=== PATIENT | male | born 1960 | race Caucasian/White ===

== ENCOUNTER 2017-07-05 23:46 | Inpatient (IN) | payer MEDICARE, OTHER ==
[2017-07-06] MEDS: ONDANSETRON 4 MG INJ IV ×2 (03:19→11:46)
[2017-07-06] MEDS: HYDROmorphONE 0.5 MG/0.5 ML SYG IV ×5 (03:19→22:05)
[2017-07-06 03:29] LABS: ADD MAN DIFF? NO
[2017-07-06 03:31] LABS: BASOPHIL # 0.1 10^3/ul (0.0-0.1); BASOPHILS % 0.5 % (0.0-2.0); EOSINOPHILS # 0.3 10^3/ul (0.0-0.5); EOSINOPHILS % 1.7 % (0.0-7.0); HEMATOCRIT 48.2 % (42.0-52.0); HEMOGLOBIN 15.7 g/dl (14.0-18.0); LYMPHOCYTES # 2.4 10^3/ul (0.8-2.9); LYMPHOCYTES % 15.2 % (15.0-51.0); MEAN CORPUSCULAR HGB CONC 32.6 g/dl (32.0-37.0); MEAN CORPUSCULAR VOLUME 85.9 fl (82.0-101.0); MEAN PLATELET VOLUME 10.7 fl (7.4-10.4); MONOCYTES % 6.1 % (0.0-11.0); NEUTROPHIL # 12.1 10^3/ul (1.6-7.5); NEUTROPHILS % 75.6 % (39.0-77.0); PLATELET COUNT 232 10^3/UL (140-415); RED BLOOD COUNT 5.61 10^6/ul (4.70-6.10); RED CELL DISTRIBUTION WIDTH 14.7 % (11.5-14.5)
[2017-07-06 03:54] LABS: ALANINE AMINOTRANSFERASE 33 IU/L (13-69); ALBUMIN 4.7 g/dl (3.3-4.9); ALBUMIN/GLOBULIN RATIO 1.09; ALKALINE PHOSPHATASE 134 IU/L (42-121); ANION GAP 27 (8-16); ASPARTATE AMINO TRANSFERASE 23 IU/L (15-46); BILIRUBIN,INDIRECT 0.4 mg/dl (0-1.1); BILIRUBIN,TOTAL 0.4 mg/dl (0.2-1.3); BLOOD UREA NITROGEN 45 mg/dl (7-20); CALCIUM 9.2 mg/dl (8.4-10.2); CARBON DIOXIDE 15 mmol/L (21-31); CHLORIDE 105 mmol/L (97-110); CREATININE 4.25 mg/dl (0.61-1.24); GLUCOSE 176 mg/dl (70-220); POTASSIUM 4.2 mmol/L (3.5-5.1); SODIUM 143 mmol/L (135-144)
[2017-07-06 04:04] LABS: B-TYPE NATRIURETIC PEPTIDE 2210 PG/ML (0-125); TROPONIN-I 0.025 ng/ml (0.00-0.12)
[2017-07-06] MEDS: LINAGLIPTIN 5 MG TABLET PO (09:00)
[2017-07-06] MEDS ORDERED: NACL 0.9% 3 ML SYG IV (09:00)
[2017-07-06] MEDS ORDERED: RANITIDINE 150 MG TAB PO (09:00)
[2017-07-06] MEDS ORDERED: ACETAMINOPHEN 325 MG TAB PO (09:00)
[2017-07-06] MEDS ORDERED: NITROGLYCERIN (SL) 0.4 MG TAB SL (09:00)
[2017-07-06] MEDS ORDERED: GLUCAGON 1 MG INJ IM (10:00)
[2017-07-06] MEDS ORDERED: GLUCOSE GEL 15 GRAM TUBE BUCCAL (10:00)
[2017-07-06] MEDS ORDERED: DEXTROSE 50% 50 ML SYRINGE IV ×2 (10:00)
[2017-07-06] MEDS ORDERED: GLUCOSE GEL 15 GRAM TUBE PO ×2 (10:00)
[2017-07-06 10:22] LABS: CREATINE KINASE 98 IU/L (23-200)
[2017-07-06 10:24] LABS: MAGNESIUM 1.9 mg/dl (1.7-2.5)
[2017-07-06 10:31] LABS: CK INDEX 4.8; TROPONIN-I 0.018 ng/ml (0.00-0.12)
[2017-07-06 10:33] LABS: CK-MB 4.73 ng/ml (0.0-2.4)
[2017-07-06] MEDS: GABAPENTIN 100 MG CAP PO ×3 (11:03→21:16)
[2017-07-06] MEDS: ASPIRIN 81 MG TAB PO (11:03)
[2017-07-06] MEDS: METOPROLOL 25 MG TAB PO ×2 (11:04→21:16)
[2017-07-06] MEDS: ATORVASTATIN 80 MG TAB PO (11:05)
[2017-07-06] MEDS: ASPIRIN (EC) 81 MG TAB PO (11:05)
[2017-07-06] MEDS: ISOSORBIDE DINITRATE 20 MG TAB PO ×3 (11:05→21:15)
[2017-07-06] MEDS: SOD CHLORIDE 0.45% 1,000 ML IV (11:15)
[2017-07-06] MEDS: HYDROCODONE/APAP (5/325) TAB PO (11:19)
[2017-07-06] MEDS: INSULIN ASPART [NOVOLOG] 3 ML PEN SC ×3 (13:45→21:14)
[2017-07-06] MEDS: CALCIUM CARBONATE 500 MG CHEW TAB PO (15:13)
[2017-07-06 17:06] LABS: CREATINE KINASE 85 IU/L (23-200)
[2017-07-06 17:21] LABS: CK-MB 4.23 ng/ml (0.0-2.4); TROPONIN-I < 0.012 ng/ml (0.00-0.12)
[2017-07-06] MEDS: ZOLPIDEM 5 MG TAB PO (22:04)
[2017-07-06] MEDS: INSULIN GLARGINE [LANtus] 3 ML PEN SC (22:16)
[2017-07-07] MEDS: SOD CHLORIDE 0.45% 1,000 ML IV ×2 (00:59→12:36)
[2017-07-07] MEDS: ACCU-CHEK XX (02:00)
[2017-07-07] MEDS: HYDROmorphONE 0.5 MG/0.5 ML SYG IV ×6 (02:07→23:03)
[2017-07-07] MEDS: PANTOPRAZOLE (EC) 40 MG TAB PO (06:10)
[2017-07-07 06:50] LABS: ADD MAN DIFF? NO
[2017-07-07 06:54] LABS: BASOPHIL # 0.1 10^3/ul (0.0-0.1); BASOPHILS % 0.4 % (0.0-2.0); EOSINOPHILS # 0.2 10^3/ul (0.0-0.5); EOSINOPHILS % 1.6 % (0.0-7.0); HEMATOCRIT 41.2 % (42.0-52.0); HEMOGLOBIN 13.3 g/dl (14.0-18.0); LYMPHOCYTES # 1.4 10^3/ul (0.8-2.9); LYMPHOCYTES % 9.9 % (15.0-51.0); MEAN CORPUSCULAR HEMOGLOBIN 27.9 pg (29.0-33.0); MEAN CORPUSCULAR HGB CONC 32.3 g/dl (32.0-37.0); MEAN CORPUSCULAR VOLUME 86.4 fl (82.0-101.0); MEAN PLATELET VOLUME 10.6 fl (7.4-10.4); MONOCYTE # 0.8 10^3/ul (0.3-0.9); MONOCYTES % 5.4 % (0.0-11.0); NEUTROPHIL # 11.6 10^3/ul (1.6-7.5); NEUTROPHILS % 82.1 % (39.0-77.0); PLATELET COUNT 193 10^3/UL (140-415); RED BLOOD COUNT 4.77 10^6/ul (4.70-6.10); RED CELL DISTRIBUTION WIDTH 14.4 % (11.5-14.5)
[2017-07-07 06:54] LABS: WHITE BLOOD COUNT 14.1 10^3/ul (4.8-10.8)
[2017-07-07 07:21] LABS: CHOLESTEROL 87 mg/dl (100-200)
[2017-07-07 07:21] LABS: CHOL/HDL RATIO 2.9 RATIO; HDL CHOLESTEROL 30 mg/dl (28-71); LDL CHOLESTEROL,CALCULATED 25 mg/dl; TRIGLYCERIDES 158 mg/dl (0-149)
[2017-07-07 07:29] LABS: ALANINE AMINOTRANSFERASE 25 IU/L (13-69); ALBUMIN 3.8 g/dl (3.3-4.9); ALBUMIN/GLOBULIN RATIO 1.11; ALKALINE PHOSPHATASE 105 IU/L (42-121); ANION GAP 21 (8-16); ASPARTATE AMINO TRANSFERASE 17 IU/L (15-46); BILIRUBIN,INDIRECT 0.2 mg/dl (0-1.1); BILIRUBIN,TOTAL 0.2 mg/dl (0.2-1.3); BLOOD UREA NITROGEN 52 mg/dl (7-20); CALCIUM 8.3 mg/dl (8.4-10.2); CARBON DIOXIDE 20 mmol/L (21-31); CHLORIDE 100 mmol/L (97-110); CREATININE 3.97 mg/dl (0.61-1.24); GLUCOSE 252 mg/dl (70-220); PHOSPHORUS 5.2 mg/dl (2.5-4.9); POTASSIUM 4.5 mmol/L (3.5-5.1); SODIUM 136 mmol/L (135-144); TOTAL PROTEIN 7.2 g/dl (6.1-8.1)
[2017-07-07] MEDS: GABAPENTIN 100 MG CAP PO ×3 (08:19→21:25)
[2017-07-07] MEDS: ATORVASTATIN 80 MG TAB PO (08:19)
[2017-07-07] MEDS: INSULIN ASPART [NOVOLOG] 3 ML PEN SC ×4 (08:19→21:24)
[2017-07-07] MEDS: ASPIRIN (EC) 81 MG TAB PO (08:20)
[2017-07-07] MEDS: LINAGLIPTIN 5 MG TABLET PO (08:20)
[2017-07-07] MEDS: ISOSORBIDE DINITRATE 20 MG TAB PO ×3 (08:21→21:27)
[2017-07-07] MEDS: METOPROLOL 25 MG TAB PO ×2 (08:24→21:26)
[2017-07-07] MEDS: ASPIRIN 81 MG TAB PO (09:00)
[2017-07-07] MEDS: INSULIN GLARGINE [LANtus] 3 ML PEN SC (21:25)
[2017-07-07] MEDS: APIXABAN 5 MG TABLET PO (21:27)
[2017-07-08] MEDS: ACCU-CHEK XX (02:00)
[2017-07-08] MEDS: HYDROmorphONE 0.5 MG/0.5 ML SYG IV ×5 (03:08→20:34)
[2017-07-08] MEDS: PANTOPRAZOLE (EC) 40 MG TAB PO (05:52)
[2017-07-08] MEDS: INSULIN ASPART [NOVOLOG] 3 ML PEN SC ×4 (08:00→20:44)
[2017-07-08] MEDS: APIXABAN 5 MG TABLET PO ×2 (08:49→20:35)
[2017-07-08] MEDS: ASPIRIN (EC) 81 MG TAB PO (08:49)
[2017-07-08] MEDS: ATORVASTATIN 80 MG TAB PO (08:49)
[2017-07-08] MEDS: LINAGLIPTIN 5 MG TABLET PO (08:50)
[2017-07-08] MEDS: ISOSORBIDE DINITRATE 20 MG TAB PO ×3 (08:50→20:47)
[2017-07-08] MEDS: GABAPENTIN 100 MG CAP PO ×3 (08:50→20:46)
[2017-07-08] MEDS: METOPROLOL 25 MG TAB PO (08:51)
[2017-07-08 09:25] LABS: ADD MAN DIFF? NO
[2017-07-08 09:27] LABS: WHITE BLOOD COUNT 12.1 10^3/ul (4.8-10.8)
[2017-07-08 09:27] LABS: BASOPHILS % 0.3 % (0.0-2.0); EOSINOPHILS # 0.2 10^3/ul (0.0-0.5); EOSINOPHILS % 1.3 % (0.0-7.0); HEMATOCRIT 40.7 % (42.0-52.0); HEMOGLOBIN 13.2 g/dl (14.0-18.0); LYMPHOCYTES # 1.7 10^3/ul (0.8-2.9); LYMPHOCYTES % 13.9 % (15.0-51.0); MEAN CORPUSCULAR HEMOGLOBIN 28.2 pg (29.0-33.0); MEAN CORPUSCULAR HGB CONC 32.4 g/dl (32.0-37.0); MONOCYTE # 0.8 10^3/ul (0.3-0.9); MONOCYTES % 6.2 % (0.0-11.0); NEUTROPHIL # 9.4 10^3/ul (1.6-7.5); NEUTROPHILS % 77.5 % (39.0-77.0); PLATELET COUNT 177 10^3/UL (140-415); RED BLOOD COUNT 4.68 10^6/ul (4.70-6.10); RED CELL DISTRIBUTION WIDTH 14.5 % (11.5-14.5)
[2017-07-08 09:48] LABS: ALANINE AMINOTRANSFERASE 31 IU/L (13-69); ALBUMIN 3.4 g/dl (3.3-4.9); ALBUMIN/GLOBULIN RATIO 1.09; ALKALINE PHOSPHATASE 101 IU/L (42-121); ANION GAP 16 (8-16); ASPARTATE AMINO TRANSFERASE 17 IU/L (15-46); BLOOD UREA NITROGEN 52 mg/dl (7-20); CALCIUM 8.1 mg/dl (8.4-10.2); CARBON DIOXIDE 23 mmol/L (21-31); CHLORIDE 103 mmol/L (97-110); CREATININE 3.98 mg/dl (0.61-1.24); GLUCOSE 145 mg/dl (70-220); POTASSIUM 4.2 mmol/L (3.5-5.1); SODIUM 138 mmol/L (135-144); TOTAL PROTEIN 6.5 g/dl (6.1-8.1)
[2017-07-08] MEDS: METOPROLOL 50 MG TAB PO (20:46)
[2017-07-08] MEDS: INSULIN GLARGINE [LANtus] 3 ML PEN SC (20:50)
[2017-07-08 22:48] LABS: PTH CALCIUM 8.6 mg/dL (8.6-10.3)
[2017-07-09] MEDS: HYDROmorphONE 0.5 MG/0.5 ML SYG IV ×5 (00:36→20:40)
[2017-07-09] MEDS: ACCU-CHEK XX (02:00)
[2017-07-09 06:11] LABS: ADD MAN DIFF? NO
[2017-07-09 06:15] LABS: WHITE BLOOD COUNT 11.7 10^3/ul (4.8-10.8)
[2017-07-09 06:15] LABS: BASOPHILS % 0.3 % (0.0-2.0); EOSINOPHILS # 0.3 10^3/ul (0.0-0.5); EOSINOPHILS % 2.3 % (0.0-7.0); HEMATOCRIT 40.2 % (42.0-52.0); HEMOGLOBIN 13.1 g/dl (14.0-18.0); LYMPHOCYTES # 1.6 10^3/ul (0.8-2.9); LYMPHOCYTES % 13.5 % (15.0-51.0); MEAN CORPUSCULAR HEMOGLOBIN 28.5 pg (29.0-33.0); MEAN CORPUSCULAR HGB CONC 32.6 g/dl (32.0-37.0); MEAN CORPUSCULAR VOLUME 87.6 fl (82.0-101.0); MEAN PLATELET VOLUME 10.6 fl (7.4-10.4); MONOCYTE # 0.9 10^3/ul (0.3-0.9); MONOCYTES % 7.3 % (0.0-11.0); NEUTROPHIL # 8.9 10^3/ul (1.6-7.5); NEUTROPHILS % 75.9 % (39.0-77.0); PLATELET COUNT 186 10^3/UL (140-415); RED BLOOD COUNT 4.59 10^6/ul (4.70-6.10); RED CELL DISTRIBUTION WIDTH 14.5 % (11.5-14.5)
[2017-07-09 06:28] LABS: ALANINE AMINOTRANSFERASE 31 IU/L (13-69); ALBUMIN 3.6 g/dl (3.3-4.9); ALBUMIN/GLOBULIN RATIO 1.05; ALKALINE PHOSPHATASE 104 IU/L (42-121); ANION GAP 18 (8-16); ASPARTATE AMINO TRANSFERASE 20 IU/L (15-46); BILIRUBIN,INDIRECT 0.1 mg/dl (0-1.1); BILIRUBIN,TOTAL 0.1 mg/dl (0.2-1.3); BLOOD UREA NITROGEN 51 mg/dl (7-20); CALCIUM 8.1 mg/dl (8.4-10.2); CARBON DIOXIDE 24 mmol/L (21-31); CHLORIDE 106 mmol/L (97-110); CREATININE 4.09 mg/dl (0.61-1.24); GLUCOSE 162 mg/dl (70-220); POTASSIUM 4.5 mmol/L (3.5-5.1); SODIUM 143 mmol/L (135-144)
[2017-07-09] MEDS: PANTOPRAZOLE (EC) 40 MG TAB PO (06:48)
[2017-07-09] MEDS: GABAPENTIN 100 MG CAP PO ×3 (08:33→20:52)
[2017-07-09] MEDS: ATORVASTATIN 80 MG TAB PO (08:34)
[2017-07-09] MEDS: METOPROLOL 50 MG TAB PO ×2 (08:34→20:54)
[2017-07-09] MEDS: ISOSORBIDE DINITRATE 20 MG TAB PO ×3 (08:35→20:53)
[2017-07-09] MEDS: APIXABAN 5 MG TABLET PO ×2 (08:35→20:52)
[2017-07-09] MEDS: HYDROCODONE/APAP (5/325) TAB PO (08:35)
[2017-07-09] MEDS: ASPIRIN (EC) 81 MG TAB PO (08:36)
[2017-07-09] MEDS: LINAGLIPTIN 5 MG TABLET PO (08:36)
[2017-07-09] MEDS: INSULIN ASPART [NOVOLOG] 3 ML PEN SC ×4 (08:37→20:57)
[2017-07-09] MEDS: NIFEdipine (XL) 30 MG TAB PO ×2 (10:55→20:53)
[2017-07-09] MEDS: INSULIN GLARGINE [LANtus] 3 ML PEN SC (20:56)
[2017-07-10] MEDS: ACCU-CHEK XX (02:00)
[2017-07-10] MEDS: HYDROmorphONE 0.5 MG/0.5 ML SYG IV ×6 (03:02→21:24)
[2017-07-10 06:08] LABS: ADD MAN DIFF? NO
[2017-07-10 06:13] LABS: BASOPHILS % 0.2 % (0.0-2.0); EOSINOPHILS # 0.4 10^3/ul (0.0-0.5); EOSINOPHILS % 2.9 % (0.0-7.0); HEMATOCRIT 37.7 % (42.0-52.0); HEMOGLOBIN 12.2 g/dl (14.0-18.0); LYMPHOCYTES # 1.5 10^3/ul (0.8-2.9); LYMPHOCYTES % 12.7 % (15.0-51.0); MEAN CORPUSCULAR HEMOGLOBIN 28.4 pg (29.0-33.0); MEAN CORPUSCULAR HGB CONC 32.4 g/dl (32.0-37.0); MEAN CORPUSCULAR VOLUME 87.7 fl (82.0-101.0); MEAN PLATELET VOLUME 11.1 fl (7.4-10.4); MONOCYTE # 0.8 10^3/ul (0.3-0.9); MONOCYTES % 6.8 % (0.0-11.0); NEUTROPHIL # 9.3 10^3/ul (1.6-7.5); NEUTROPHILS % 76.5 % (39.0-77.0); PLATELET COUNT 183 10^3/UL (140-415); RED CELL DISTRIBUTION WIDTH 14.7 % (11.5-14.5)
[2017-07-10 06:13] LABS: WHITE BLOOD COUNT 12.1 10^3/ul (4.8-10.8)
[2017-07-10 06:27] LABS: ANION GAP 18 (8-16); BLOOD UREA NITROGEN 57 mg/dl (7-20); CALCIUM 7.9 mg/dl (8.4-10.2); CARBON DIOXIDE 22 mmol/L (21-31); CHLORIDE 105 mmol/L (97-110); CREATININE 4.17 mg/dl (0.61-1.24); GLUCOSE 234 mg/dl (70-220); MAGNESIUM 1.6 mg/dl (1.7-2.5); PHOSPHORUS 4.1 mg/dl (2.5-4.9); POTASSIUM 4.6 mmol/L (3.5-5.1); SODIUM 140 mmol/L (135-144)
[2017-07-10] MEDS: PANTOPRAZOLE (EC) 40 MG TAB PO (06:37)
[2017-07-10] MEDS: INSULIN ASPART [NOVOLOG] 3 ML PEN SC ×4 (08:02→20:18)
[2017-07-10] MEDS: ASPIRIN (EC) 81 MG TAB PO (08:03)
[2017-07-10] MEDS: APIXABAN 5 MG TABLET PO ×2 (08:03→20:17)
[2017-07-10] MEDS: LINAGLIPTIN 5 MG TABLET PO (08:03)
[2017-07-10] MEDS: ATORVASTATIN 80 MG TAB PO (08:03)
[2017-07-10] MEDS: GABAPENTIN 100 MG CAP PO ×3 (08:03→20:17)
[2017-07-10] MEDS: METOPROLOL 50 MG TAB PO ×2 (08:05→20:18)
[2017-07-10] MEDS: ISOSORBIDE DINITRATE 20 MG TAB PO ×3 (08:07→20:16)
[2017-07-10] MEDS: NIFEdipine (XL) 30 MG TAB PO ×2 (08:07→20:17)
[2017-07-10] MEDS: MAGNESIUM SULFATE 2 GM/50 ML 50 ML IVPB (11:52)
[2017-07-10] MEDS: LACTULOSE 30ML CUP PO (17:26)
[2017-07-10] MEDS: INSULIN GLARGINE [LANtus] 3 ML PEN SC (20:20)
[2017-07-11] MEDS: HYDROmorphONE 0.5 MG/0.5 ML SYG IV ×6 (01:23→21:58)
[2017-07-11] MEDS: ACCU-CHEK XX (01:34)
[2017-07-11] MEDS: PANTOPRAZOLE (EC) 40 MG TAB PO (05:27)
[2017-07-11 06:41] LABS: PTH INTACT 175 pg/mL (14-64)
[2017-07-11 07:33] LABS: ADD MAN DIFF? NO
[2017-07-11 07:36] LABS: BASOPHILS % 0.3 % (0.0-2.0); EOSINOPHILS # 0.4 10^3/ul (0.0-0.5); EOSINOPHILS % 3.1 % (0.0-7.0); LYMPHOCYTES # 1.4 10^3/ul (0.8-2.9); LYMPHOCYTES % 11.2 % (15.0-51.0); MEAN CORPUSCULAR HEMOGLOBIN 28.4 pg (29.0-33.0); MEAN CORPUSCULAR HGB CONC 32.4 g/dl (32.0-37.0); MEAN CORPUSCULAR VOLUME 87.7 fl (82.0-101.0); MONOCYTE # 0.7 10^3/ul (0.3-0.9); MONOCYTES % 5.8 % (0.0-11.0); NEUTROPHILS % 78.6 % (39.0-77.0); PLATELET COUNT 192 10^3/UL (140-415); RED BLOOD COUNT 4.22 10^6/ul (4.70-6.10); RED CELL DISTRIBUTION WIDTH 14.5 % (11.5-14.5)
[2017-07-11 07:36] LABS: WHITE BLOOD COUNT 12.7 10^3/ul (4.8-10.8)
[2017-07-11 07:58] LABS: ANION GAP 18 (8-16); BLOOD UREA NITROGEN 60 mg/dl (7-20); CALCIUM 8.1 mg/dl (8.4-10.2); CARBON DIOXIDE 19 mmol/L (21-31); CHLORIDE 105 mmol/L (97-110); CREATININE 4.07 mg/dl (0.61-1.24); GLUCOSE 171 mg/dl (70-220); MAGNESIUM 1.9 mg/dl (1.7-2.5); PHOSPHORUS 4.3 mg/dl (2.5-4.9); POTASSIUM 4.3 mmol/L (3.5-5.1); SODIUM 138 mmol/L (135-144)
[2017-07-11] MEDS: ASPIRIN (EC) 81 MG TAB PO (08:43)
[2017-07-11] MEDS: APIXABAN 5 MG TABLET PO ×2 (08:43→21:00)
[2017-07-11] MEDS: ISOSORBIDE DINITRATE 20 MG TAB PO ×3 (08:44→20:58)
[2017-07-11] MEDS: METOPROLOL 50 MG TAB PO ×2 (08:45→11:49)
[2017-07-11] MEDS: ATORVASTATIN 80 MG TAB PO (08:45)
[2017-07-11] MEDS: GABAPENTIN 100 MG CAP PO ×3 (08:45→20:58)
[2017-07-11] MEDS: NIFEdipine (XL) 30 MG TAB PO (08:46)
[2017-07-11] MEDS: LINAGLIPTIN 5 MG TABLET PO (08:46)
[2017-07-11] MEDS: INSULIN ASPART [NOVOLOG] 3 ML PEN SC ×4 (08:47→21:04)
[2017-07-11] MEDS: LACTULOSE 30ML CUP PO (11:49)
[2017-07-11] MEDS: LORAZEPAM 1 MG TAB PO (11:49)
[2017-07-11] MEDS: NIFEdipine (XL) 60 MG TAB PO (21:01)
[2017-07-11] MEDS: INSULIN GLARGINE [LANtus] 3 ML PEN SC (21:04)
[2017-07-12 02:01] LABS: ADD UMIC YES; UR ASCORBIC ACID NEGATIVE (NEGATIVE); UR BILIRUBIN (Dip) NEGATIVE (NEGATIVE); UR BLOOD (Dip) NEGATIVE (NEGATIVE); UR CLARITY CLEAR (CLEAR); UR COLOR STRAW (YELLOW); UR GLUCOSE (Dip) 3+ mg/dL (NEGATIVE); UR KETONES (Dip) NEGATIVE (NEGATIVE); UR LEUKOCYTE ESTERASE (Dip) NEGATIVE Leu/ul (NEGATIVE); UR NITRITE (Dip) NEGATIVE (NEGATIVE); UR RBC 1 /HPF (0-5); UR SPECIFIC GRAVITY (Dip) 1.008 (1.003-1.030); UR TOTAL PROTEIN (Dip) 2+ mg/dl (NEGATIVE); UR UROBILINOGEN (Dip) NEGATIVE (NEGATIVE); UR WBC 0 /HPF (0-5)
[2017-07-12] MEDS: HYDROmorphONE 0.5 MG/0.5 ML SYG IV ×6 (02:13→21:47)
[2017-07-12] MEDS: ACCU-CHEK XX (02:26)
[2017-07-12] MEDS: PANTOPRAZOLE (EC) 40 MG TAB PO (06:03)
[2017-07-12] MEDS: INSULIN ASPART [NOVOLOG] 3 ML PEN SC ×4 (07:58→21:00)
[2017-07-12] MEDS: LINAGLIPTIN 5 MG TABLET PO (09:13)
[2017-07-12] MEDS: NIFEdipine (XL) 30 MG TAB PO (09:13)
[2017-07-12] MEDS: METOPROLOL 50 MG TAB PO ×2 (09:13→20:56)
[2017-07-12] MEDS: GABAPENTIN 100 MG CAP PO ×3 (09:14→20:57)
[2017-07-12] MEDS: APIXABAN 5 MG TABLET PO ×2 (09:14→20:54)
[2017-07-12] MEDS: ATORVASTATIN 80 MG TAB PO (09:14)
[2017-07-12] MEDS: ISOSORBIDE DINITRATE 20 MG TAB PO ×3 (09:14→20:56)
[2017-07-12] MEDS: ASPIRIN (EC) 81 MG TAB PO (09:14)
[2017-07-12] MEDS: NIFEdipine (XL) 60 MG TAB PO (20:56)
[2017-07-12] MEDS: INSULIN GLARGINE [LANtus] 3 ML PEN SC (21:01)
[2017-07-13] MEDS: HYDROmorphONE 0.5 MG/0.5 ML SYG IV ×3 (01:56→10:33)
[2017-07-13] MEDS: ACCU-CHEK XX (02:52)
[2017-07-13] MEDS: PANTOPRAZOLE (EC) 40 MG TAB PO (06:00)
[2017-07-13] MEDS: INSULIN ASPART [NOVOLOG] 3 ML PEN SC ×2 (08:00→12:10)
[2017-07-13] MEDS: ISOSORBIDE DINITRATE 20 MG TAB PO ×2 (08:55→13:00)
[2017-07-13] MEDS: LINAGLIPTIN 5 MG TABLET PO (08:56)
[2017-07-13] MEDS: METOPROLOL 50 MG TAB PO (08:56)
[2017-07-13] MEDS: ATORVASTATIN 80 MG TAB PO (08:56)
[2017-07-13] MEDS: GABAPENTIN 100 MG CAP PO ×2 (08:56→12:24)
[2017-07-13] MEDS: APIXABAN 5 MG TABLET PO (08:56)
[2017-07-13] MEDS: ASPIRIN (EC) 81 MG TAB PO (08:56)
[2017-07-13] MEDS: NIFEdipine (XL) 30 MG TAB PO (08:57)
[2017-07-13] MEDS: LORAZEPAM 1 MG TAB PO (09:07)
[2017-07-13 09:25] LABS: ADD MAN DIFF? NO
[2017-07-13 09:32] LABS: WHITE BLOOD COUNT 14.4 10^3/ul (4.8-10.8)
[2017-07-13 09:32] LABS: BASOPHILS % 0.3 % (0.0-2.0); EOSINOPHILS # 0.3 10^3/ul (0.0-0.5); EOSINOPHILS % 2.3 % (0.0-7.0); HEMATOCRIT 37.7 % (42.0-52.0); HEMOGLOBIN 12.1 g/dl (14.0-18.0); LYMPHOCYTES # 1.6 10^3/ul (0.8-2.9); LYMPHOCYTES % 10.9 % (15.0-51.0); MEAN CORPUSCULAR HEMOGLOBIN 28.2 pg (29.0-33.0); MEAN CORPUSCULAR HGB CONC 32.1 g/dl (32.0-37.0); MEAN CORPUSCULAR VOLUME 87.9 fl (82.0-101.0); MEAN PLATELET VOLUME 11.1 fl (7.4-10.4); MONOCYTE # 1.2 10^3/ul (0.3-0.9); MONOCYTES % 8.6 % (0.0-11.0); NEUTROPHILS % 76.6 % (39.0-77.0); PLATELET COUNT 214 10^3/UL (140-415); RED BLOOD COUNT 4.29 10^6/ul (4.70-6.10); RED CELL DISTRIBUTION WIDTH 14.4 % (11.5-14.5)
[2017-07-13 11:51] LABS: ALANINE AMINOTRANSFERASE 26 IU/L (13-69); ALBUMIN 3.9 g/dl (3.3-4.9); ALBUMIN/GLOBULIN RATIO 1.02; ALKALINE PHOSPHATASE 115 IU/L (42-121); ANION GAP 19 (8-16); ASPARTATE AMINO TRANSFERASE 13 IU/L (15-46); BILIRUBIN,INDIRECT 0.4 mg/dl (0-1.1); BILIRUBIN,TOTAL 0.4 mg/dl (0.2-1.3); BLOOD UREA NITROGEN 67 mg/dl (7-20); CALCIUM 8.7 mg/dl (8.4-10.2); CARBON DIOXIDE 19 mmol/L (21-31); CHLORIDE 100 mmol/L (97-110); CREATININE 4.91 mg/dl (0.61-1.24); GLUCOSE 130 mg/dl (70-220); POTASSIUM 3.9 mmol/L (3.5-5.1); SODIUM 134 mmol/L (135-144); TOTAL PROTEIN 7.7 g/dl (6.1-8.1)
== END 2017-07-13 15:35 | disposition home or self-care (01) | DRG 313 ==
LOC: E/R 23:46 → MS4 07-06 05:45
DX: R07.89 Other chest pain (principal); I12.0 Hypertensive chronic kidney disease with stage 5 chronic kidney disease or end stage renal disease; N18.5 Chronic kidney disease, stage 5; T82.898A Other specified complication of vascular prosthetic devices, implants and grafts, initial encounter; I25.10 Atherosclerotic heart disease of native coronary artery without angina pectoris; E11.22 Type 2 diabetes mellitus with diabetic chronic kidney disease; E11.40 Type 2 diabetes mellitus with diabetic neuropathy, unspecified; E11.319 Type 2 diabetes mellitus with unspecified diabetic retinopathy without macular edema; E11.21 Type 2 diabetes mellitus with diabetic nephropathy; I73.9 Peripheral vascular disease, unspecified; Z96.641 Presence of right artificial hip joint; Z90.49 Acquired absence of other specified parts of digestive tract; Z95.1 Presence of aortocoronary bypass graft; E78.5 Hyperlipidemia, unspecified; F41.9 Anxiety disorder, unspecified; F32.9 Major depressive disorder, single episode, unspecified; I51.7 Cardiomegaly
CPT/HCPCS: 36415; 71045; 71046; 80048; 80053; 80061; 81001; 82550; 82553; 82962; 83735; 83880; 83970; 84100; 84484; 85025; 93005; 93306; 93931; 96374; 96375; 96376; 99285-25; G0378

== ENCOUNTER 2017-07-21 11:48 | Inpatient (IN) | payer MEDICARE, OTHER ==
[2017-07-21] MEDS ORDERED: ACETAMINOPHEN 325 MG TAB PO (15:30)
[2017-07-21] MEDS ORDERED: NACL 0.9% 3 ML SYG IV (15:30)
[2017-07-21] MEDS ORDERED: GLUCOSE GEL 15 GRAM TUBE PO ×2 (16:00)
[2017-07-21] MEDS ORDERED: GLUCOSE GEL 15 GRAM TUBE BUCCAL (16:00)
[2017-07-21] MEDS ORDERED: DEXTROSE 50% 50 ML SYRINGE IV ×2 (16:00)
[2017-07-21] MEDS ORDERED: GLUCAGON 1 MG INJ IM (16:00)
[2017-07-21] MEDS ORDERED: LORAZEPAM 1 MG TAB PO (16:00)
[2017-07-21 16:54] LABS: ADD MAN DIFF? NO
[2017-07-21 16:57] LABS: WHITE BLOOD COUNT 13.2 10^3/ul (4.8-10.8)
[2017-07-21 16:57] LABS: BASOPHIL # 0.1 10^3/ul (0.0-0.1); BASOPHILS % 0.5 % (0.0-2.0); EOSINOPHILS # 0.7 10^3/ul (0.0-0.5); EOSINOPHILS % 5.2 % (0.0-7.0); HEMATOCRIT 34.1 % (42.0-52.0); HEMOGLOBIN 10.9 g/dl (14.0-18.0); LYMPHOCYTES # 1.9 10^3/ul (0.8-2.9); MEAN CORPUSCULAR HEMOGLOBIN 27.9 pg (29.0-33.0); MEAN CORPUSCULAR VOLUME 87.2 fl (82.0-101.0); MEAN PLATELET VOLUME 9.9 fl (7.4-10.4); MONOCYTE # 0.7 10^3/ul (0.3-0.9); MONOCYTES % 5.4 % (0.0-11.0); NEUTROPHIL # 9.7 10^3/ul (1.6-7.5); NEUTROPHILS % 73.7 % (39.0-77.0); PLATELET COUNT 282 10^3/UL (140-415); RED BLOOD COUNT 3.91 10^6/ul (4.70-6.10); RED CELL DISTRIBUTION WIDTH 14.6 % (11.5-14.5)
[2017-07-21 17:14] LABS: ALANINE AMINOTRANSFERASE 48 IU/L (13-69); ALBUMIN 3.2 g/dl (3.3-4.9); ALBUMIN/GLOBULIN RATIO 1.06; ALKALINE PHOSPHATASE 99 IU/L (42-121); ANION GAP 14 (8-16); ASPARTATE AMINO TRANSFERASE 19 IU/L (15-46); BLOOD UREA NITROGEN 58 mg/dl (7-20); CALCIUM 7.8 mg/dl (8.4-10.2); CARBON DIOXIDE 23 mmol/L (21-31); CHLORIDE 104 mmol/L (97-110); CREATININE 4.51 mg/dl (0.61-1.24); GLUCOSE 178 mg/dl (70-220); PHOSPHORUS 5.1 mg/dl (2.5-4.9); POTASSIUM 3.7 mmol/L (3.5-5.1); SODIUM 137 mmol/L (135-144); TOTAL PROTEIN 6.2 g/dl (6.1-8.1)
[2017-07-21 17:17] LABS: INR 1.15; PROTIME 14.9 Sec (11.9-14.9); PT RATIO 1.2
[2017-07-21 17:18] LABS: PARTIAL THROMBOPLASTIN TIME 37.1 Sec (25.0-35.0)
[2017-07-21 17:26] LABS: MAGNESIUM 1.5 mg/dl (1.7-2.5)
[2017-07-21] MEDS: LORAZEPAM 1 MG TAB PO (17:38)
[2017-07-21] MEDS: HYDROCODONE/APAP (5/325) TAB PO ×2 (17:39→23:43)
[2017-07-21] MEDS: INSULIN ASPART [NOVOLOG] 3 ML PEN SC ×2 (17:40→21:28)
[2017-07-21] MEDS: FUROSEMIDE 40 MG INJ IV (17:42)
[2017-07-21] MEDS: ASPIRIN (EC) 81 MG TAB PO (21:21)
[2017-07-21] MEDS: ISOSORBIDE DINITRATE 20 MG TAB PO (21:23)
[2017-07-21] MEDS: INSULIN GLARGINE [LANtus] 3 ML PEN SC (21:31)
[2017-07-21] MEDS: NIFEdipine (XL) 60 MG TAB PO (22:39)
[2017-07-21] MEDS: METOPROLOL 25 MG TAB PO (22:39)
[2017-07-21] MEDS: POTASSIUM CHLORIDE (SR) 10 MEQ TAB PO (23:41)
[2017-07-21] MEDS: DEXTROSE 5% 1,000 ML IV (23:50)
[2017-07-22] MEDS: ZOLPIDEM 5 MG TAB PO (00:07)
[2017-07-22] MEDS: MAGNESIUM SULFATE 2 GM/50 ML 50 ML IVPB (00:28)
[2017-07-22] MEDS: INSULIN ASPART [NOVOLOG] 3 ML PEN SC ×6 (00:34→18:21)
[2017-07-22 00:41] LABS: ADD UMIC YES; UR ASCORBIC ACID NEGATIVE (NEGATIVE); UR BILIRUBIN (Dip) NEGATIVE (NEGATIVE); UR BLOOD (Dip) NEGATIVE (NEGATIVE); UR CLARITY CLEAR (CLEAR); UR COLOR STRAW (YELLOW); UR GLUCOSE (Dip) 3+ mg/dL (NEGATIVE); UR KETONES (Dip) NEGATIVE (NEGATIVE); UR LEUKOCYTE ESTERASE (Dip) NEGATIVE Leu/ul (NEGATIVE); UR NITRITE (Dip) NEGATIVE (NEGATIVE); UR RBC 0 /HPF (0-5); UR SPECIFIC GRAVITY (Dip) 1.005 (1.003-1.030); UR TOTAL PROTEIN (Dip) 2+ mg/dl (NEGATIVE); UR UROBILINOGEN (Dip) NEGATIVE (NEGATIVE); UR WBC 1 /HPF (0-5)
[2017-07-22 05:49] LABS: ADD MAN DIFF? NO
[2017-07-22 05:53] LABS: WHITE BLOOD COUNT 11.9 10^3/ul (4.8-10.8)
[2017-07-22 05:53] LABS: BASOPHIL # 0.1 10^3/ul (0.0-0.1); BASOPHILS % 0.4 % (0.0-2.0); EOSINOPHILS # 0.6 10^3/ul (0.0-0.5); EOSINOPHILS % 4.6 % (0.0-7.0); HEMATOCRIT 31.4 % (42.0-52.0); HEMOGLOBIN 10.3 g/dl (14.0-18.0); LYMPHOCYTES # 1.8 10^3/ul (0.8-2.9); LYMPHOCYTES % 14.8 % (15.0-51.0); MEAN CORPUSCULAR HEMOGLOBIN 28.3 pg (29.0-33.0); MEAN CORPUSCULAR HGB CONC 32.8 g/dl (32.0-37.0); MEAN CORPUSCULAR VOLUME 86.3 fl (82.0-101.0); MEAN PLATELET VOLUME 9.7 fl (7.4-10.4); MONOCYTE # 0.7 10^3/ul (0.3-0.9); MONOCYTES % 5.6 % (0.0-11.0); NEUTROPHIL # 8.8 10^3/ul (1.6-7.5); NEUTROPHILS % 73.4 % (39.0-77.0); PLATELET COUNT 273 10^3/UL (140-415); RED BLOOD COUNT 3.64 10^6/ul (4.70-6.10); RED CELL DISTRIBUTION WIDTH 14.6 % (11.5-14.5)
[2017-07-22 06:14] LABS: MAGNESIUM 2.2 mg/dl (1.7-2.5)
[2017-07-22 06:20] LABS: ALANINE AMINOTRANSFERASE 40 IU/L (13-69); ALBUMIN 3.2 g/dl (3.3-4.9); ALBUMIN/GLOBULIN RATIO 0.96; ALKALINE PHOSPHATASE 98 IU/L (42-121); ANION GAP 17 (8-16); ASPARTATE AMINO TRANSFERASE 16 IU/L (15-46); BLOOD UREA NITROGEN 61 mg/dl (7-20); CALCIUM 7.8 mg/dl (8.4-10.2); CARBON DIOXIDE 22 mmol/L (21-31); CHLORIDE 101 mmol/L (97-110); CREATININE 4.63 mg/dl (0.61-1.24); GLUCOSE 181 mg/dl (70-220); POTASSIUM 4.1 mmol/L (3.5-5.1); SODIUM 136 mmol/L (135-144); TOTAL PROTEIN 6.5 g/dl (6.1-8.1)
[2017-07-22] MEDS: HYDROCODONE/APAP (5/325) TAB PO ×2 (08:34→23:51)
[2017-07-22] MEDS: LINAGLIPTIN 5 MG TABLET PO (09:00)
[2017-07-22] MEDS: METOPROLOL 25 MG TAB PO ×2 (09:00→20:42)
[2017-07-22] MEDS ORDERED: LINAGLIPTIN 5 MG TABLET PO (09:00)
[2017-07-22] MEDS: ATORVASTATIN 80 MG TAB PO (09:00)
[2017-07-22] MEDS: CALCITRIOL 0.25 MCG CAP PO (09:00)
[2017-07-22] MEDS: ISOSORBIDE DINITRATE 20 MG TAB PO ×3 (09:00→20:43)
[2017-07-22] MEDS: HYDROmorphONE 0.5 MG/0.5 ML SYG IV ×2 (10:21→17:31)
[2017-07-22] MEDS: FUROSEMIDE 40 MG INJ IV (10:28)
[2017-07-22 12:11] LABS: HAAIG REFLEX REFLEX FILED
[2017-07-22 13:22] LABS: HEPATITIS B SURFACE ANTIGEN NEGATIVE (NEGATIVE)
[2017-07-22] MEDS ORDERED: HYDROmorphONE (0.2 MG/ML) 10ML SYG IV ×3 (14:00)
[2017-07-22] MEDS ORDERED: ONDANSETRON 4 MG INJ IV (14:00)
[2017-07-22] MEDS ORDERED: EPHEDrine SULFATE 50 MG/5 ML SYG IV (14:00)
[2017-07-22] MEDS ORDERED: LABETALOL HCL 20MG INJ IV (14:00)
[2017-07-22] MEDS ORDERED: hydrALAzine 20 MG INJ IV (14:00)
[2017-07-22] MEDS: LIDOCAINE 1%/EPI 30 ML INJ INJ (15:11)
[2017-07-22] MEDS: HEPARIN 1000 UNITS/ML 10 ML INJ IRR (15:44)
[2017-07-22 15:47] LABS: HEPATITIS B CORE ANTIBODY NEGATIVE (NEGATIVE); HEPATITIS C VIRAL ANTIBODY NEGATIVE (NEGATIVE)
[2017-07-22] MEDS: ASPIRIN (EC) 81 MG TAB PO (20:42)
[2017-07-22] MEDS: NIFEdipine (XL) 60 MG TAB PO (20:43)
[2017-07-22] MEDS: INSULIN GLARGINE [LANtus] 3 ML PEN SC (20:48)
[2017-07-22] MEDS: Insulin NOVOLOG SS MILD Algorithm (SS with meals and bedtime) SC (20:49)
[2017-07-22] MEDS ORDERED: INSULIN ASPART [NOVOLOG] 3 ML PEN SC (21:00)
[2017-07-22] MEDS: HYDROmorphONE 2 MG/ML SYG IV (21:29)
[2017-07-23] MEDS: ACCUCHECK AT 2AM (Patients on SS coverage) XX (01:27)
[2017-07-23] MEDS: HYDROmorphONE 0.5 MG/0.5 ML SYG IV ×6 (01:55→22:03)
[2017-07-23] MEDS: LORAZEPAM 1 MG TAB PO (03:17)
[2017-07-23] MEDS: Insulin NOVOLOG SS MILD Algorithm (SS with meals and bedtime) SC ×4 (08:00→20:35)
[2017-07-23] MEDS: LINAGLIPTIN 5 MG TABLET PO (08:49)
[2017-07-23] MEDS: CALCITRIOL 0.25 MCG CAP PO (08:49)
[2017-07-23] MEDS: ATORVASTATIN 80 MG TAB PO (08:49)
[2017-07-23] MEDS: METOPROLOL 25 MG TAB PO ×2 (09:00→20:32)
[2017-07-23] MEDS: ISOSORBIDE DINITRATE 20 MG TAB PO ×3 (09:00→20:31)
[2017-07-23 11:19] LABS: ADD MAN DIFF? NO
[2017-07-23 11:24] LABS: WHITE BLOOD COUNT 10.4 10^3/ul (4.8-10.8)
[2017-07-23 11:24] LABS: BASOPHILS % 0.4 % (0.0-2.0); EOSINOPHILS # 0.3 10^3/ul (0.0-0.5); EOSINOPHILS % 2.9 % (0.0-7.0); HEMOGLOBIN 10.3 g/dl (14.0-18.0); LYMPHOCYTES % 9.3 % (15.0-51.0); MEAN CORPUSCULAR HEMOGLOBIN 27.8 pg (29.0-33.0); MEAN CORPUSCULAR HGB CONC 31.2 g/dl (32.0-37.0); MEAN CORPUSCULAR VOLUME 89.2 fl (82.0-101.0); MEAN PLATELET VOLUME 10.2 fl (7.4-10.4); MONOCYTE # 0.7 10^3/ul (0.3-0.9); MONOCYTES % 6.3 % (0.0-11.0); NEUTROPHIL # 8.3 10^3/ul (1.6-7.5); NEUTROPHILS % 80.1 % (39.0-77.0); PLATELET COUNT 254 10^3/UL (140-415); RED CELL DISTRIBUTION WIDTH 14.5 % (11.5-14.5)
[2017-07-23 11:45] LABS: ALANINE AMINOTRANSFERASE 26 IU/L (13-69); ALBUMIN 3.3 g/dl (3.3-4.9); ALBUMIN/GLOBULIN RATIO 0.97; ALKALINE PHOSPHATASE 105 IU/L (42-121); ANION GAP 16 (8-16); ASPARTATE AMINO TRANSFERASE 12 IU/L (15-46); BLOOD UREA NITROGEN 62 mg/dl (7-20); CALCIUM 7.8 mg/dl (8.4-10.2); CARBON DIOXIDE 22 mmol/L (21-31); CHLORIDE 102 mmol/L (97-110); CREATININE 4.41 mg/dl (0.61-1.24); GLUCOSE 250 mg/dl (70-220); POTASSIUM 4.2 mmol/L (3.5-5.1); SODIUM 136 mmol/L (135-144); TOTAL PROTEIN 6.7 g/dl (6.1-8.1)
[2017-07-23] MEDS: ALBUTEROL/IPRATROPIUM (NEB) 3 ML AMP HHN ×2 (13:03→19:35)
[2017-07-23] MEDS: HYDROCODONE/APAP (5/325) TAB PO ×2 (16:16→23:53)
[2017-07-23] MEDS: ASPIRIN (EC) 81 MG TAB PO (20:31)
[2017-07-23] MEDS: NIFEdipine (XL) 60 MG TAB PO (20:31)
[2017-07-23] MEDS: INSULIN GLARGINE [LANtus] 3 ML PEN SC (20:34)
[2017-07-24] MEDS: ZOLPIDEM 5 MG TAB PO (01:02)
[2017-07-24] MEDS: ACCUCHECK AT 2AM (Patients on SS coverage) XX (01:40)
[2017-07-24] MEDS: HYDROmorphONE 0.5 MG/0.5 ML SYG IV ×6 (02:15→22:32)
[2017-07-24] MEDS: Insulin NOVOLOG SS MILD Algorithm (SS with meals and bedtime) SC ×4 (07:30→21:20)
[2017-07-24] MEDS: ALBUTEROL/IPRATROPIUM (NEB) 3 ML AMP HHN ×3 (08:34→19:40)
[2017-07-24] MEDS: CALCITRIOL 0.25 MCG CAP PO (09:04)
[2017-07-24] MEDS: METOPROLOL 25 MG TAB PO ×2 (09:04→21:10)
[2017-07-24] MEDS: ATORVASTATIN 80 MG TAB PO (09:05)
[2017-07-24] MEDS: ISOSORBIDE DINITRATE 20 MG TAB PO ×3 (09:05→21:10)
[2017-07-24] MEDS: LINAGLIPTIN 5 MG TABLET PO (09:05)
[2017-07-24] MEDS: HYDROCODONE/APAP (5/325) TAB PO ×2 (11:21→17:32)
[2017-07-24] MEDS: NIFEdipine (XL) 60 MG TAB PO (21:10)
[2017-07-24] MEDS: ASPIRIN (EC) 81 MG TAB PO (21:10)
[2017-07-24] MEDS: INSULIN GLARGINE [LANtus] 3 ML PEN SC (21:18)
[2017-07-25] MEDS: HYDROCODONE/APAP (5/325) TAB PO ×4 (00:10→22:39)
[2017-07-25] MEDS: ZOLPIDEM 5 MG TAB PO ×2 (01:59→23:55)
[2017-07-25] MEDS: ACCUCHECK AT 2AM (Patients on SS coverage) XX (02:00)
[2017-07-25] MEDS: HYDROmorphONE 0.5 MG/0.5 ML SYG IV ×6 (02:40→22:50)
[2017-07-25] MEDS: ALBUTEROL/IPRATROPIUM (NEB) 3 ML AMP HHN ×3 (07:51→19:18)
[2017-07-25] MEDS: Insulin NOVOLOG SS MILD Algorithm (SS with meals and bedtime) SC ×4 (08:01→20:59)
[2017-07-25] MEDS: CALCITRIOL 0.25 MCG CAP PO (08:13)
[2017-07-25] MEDS: DOCUSATE SODIUM 100 MG CAP PO (08:13)
[2017-07-25] MEDS: ATORVASTATIN 80 MG TAB PO (08:13)
[2017-07-25] MEDS: ISOSORBIDE DINITRATE 20 MG TAB PO ×3 (08:14→20:55)
[2017-07-25] MEDS: METOPROLOL 25 MG TAB PO ×2 (08:14→20:56)
[2017-07-25] MEDS: LINAGLIPTIN 5 MG TABLET PO (08:14)
[2017-07-25 12:25] LABS: ADD MAN DIFF? NO
[2017-07-25 12:27] LABS: WHITE BLOOD COUNT 11.9 10^3/ul (4.8-10.8)
[2017-07-25 12:27] LABS: BASOPHIL # 0.1 10^3/ul (0.0-0.1); BASOPHILS % 0.4 % (0.0-2.0); EOSINOPHILS # 0.5 10^3/ul (0.0-0.5); EOSINOPHILS % 4.1 % (0.0-7.0); HEMATOCRIT 32.7 % (42.0-52.0); HEMOGLOBIN 10.3 g/dl (14.0-18.0); LYMPHOCYTES # 1.2 10^3/ul (0.8-2.9); LYMPHOCYTES % 9.7 % (15.0-51.0); MEAN CORPUSCULAR HEMOGLOBIN 28.1 pg (29.0-33.0); MEAN CORPUSCULAR HGB CONC 31.5 g/dl (32.0-37.0); MEAN CORPUSCULAR VOLUME 89.3 fl (82.0-101.0); MEAN PLATELET VOLUME 10.4 fl (7.4-10.4); MONOCYTE # 0.7 10^3/ul (0.3-0.9); MONOCYTES % 5.5 % (0.0-11.0); NEUTROPHIL # 9.4 10^3/ul (1.6-7.5); NEUTROPHILS % 79.6 % (39.0-77.0); PLATELET COUNT 232 10^3/UL (140-415); RED BLOOD COUNT 3.66 10^6/ul (4.70-6.10); RED CELL DISTRIBUTION WIDTH 14.4 % (11.5-14.5)
[2017-07-25 13:00] LABS: ALANINE AMINOTRANSFERASE 20 IU/L (13-69); ALBUMIN 3.4 g/dl (3.3-4.9); ALBUMIN/GLOBULIN RATIO 0.97; ALKALINE PHOSPHATASE 115 IU/L (42-121); ANION GAP 16 (8-16); ASPARTATE AMINO TRANSFERASE 15 IU/L (15-46); BILIRUBIN,INDIRECT 0.1 mg/dl (0-1.1); BILIRUBIN,TOTAL 0.1 mg/dl (0.2-1.3); BLOOD UREA NITROGEN 39 mg/dl (7-20); CALCIUM 8.3 mg/dl (8.4-10.2); CARBON DIOXIDE 23 mmol/L (21-31); CHLORIDE 101 mmol/L (97-110); CREATININE 3.88 mg/dl (0.61-1.24); GLUCOSE 160 mg/dl (70-220); POTASSIUM 4.2 mmol/L (3.5-5.1); SODIUM 136 mmol/L (135-144); TOTAL PROTEIN 6.9 g/dl (6.1-8.1)
[2017-07-25] MEDS: LORAZEPAM 1 MG TAB PO (13:29)
[2017-07-25] MEDS: ONDANSETRON 4 MG INJ IV (14:44)
[2017-07-25] MEDS: ASPIRIN (EC) 81 MG TAB PO (20:55)
[2017-07-25] MEDS: NIFEdipine (XL) 60 MG TAB PO (20:56)
[2017-07-25] MEDS: INSULIN GLARGINE [LANtus] 3 ML PEN SC (20:58)
[2017-07-26] MEDS: ACCUCHECK AT 2AM (Patients on SS coverage) XX (02:00)
[2017-07-26] MEDS: HYDROmorphONE 0.5 MG/0.5 ML SYG IV ×5 (03:07→20:26)
[2017-07-26] MEDS: LORAZEPAM 1 MG TAB PO ×2 (04:03→16:06)
[2017-07-26] MEDS: Insulin NOVOLOG SS MILD Algorithm (SS with meals and bedtime) SC ×4 (07:30→20:25)
[2017-07-26] MEDS: ALBUTEROL/IPRATROPIUM (NEB) 3 ML AMP HHN ×3 (08:40→19:27)
[2017-07-26] MEDS: LINAGLIPTIN 5 MG TABLET PO (08:56)
[2017-07-26] MEDS: ATORVASTATIN 80 MG TAB PO (08:56)
[2017-07-26] MEDS: CALCITRIOL 0.25 MCG CAP PO (08:56)
[2017-07-26] MEDS: METOPROLOL 25 MG TAB PO ×2 (09:00→20:24)
[2017-07-26] MEDS: ISOSORBIDE DINITRATE 20 MG TAB PO ×3 (09:00→21:03)
[2017-07-26 10:02] LABS: ADD MAN DIFF? NO
[2017-07-26 10:04] LABS: WHITE BLOOD COUNT 11.6 10^3/ul (4.8-10.8)
[2017-07-26 10:04] LABS: BASOPHIL # 0.1 10^3/ul (0.0-0.1); BASOPHILS % 0.5 % (0.0-2.0); EOSINOPHILS # 0.5 10^3/ul (0.0-0.5); EOSINOPHILS % 4.5 % (0.0-7.0); HEMATOCRIT 32.3 % (42.0-52.0); HEMOGLOBIN 10.2 g/dl (14.0-18.0); LYMPHOCYTES # 1.3 10^3/ul (0.8-2.9); LYMPHOCYTES % 10.8 % (15.0-51.0); MEAN CORPUSCULAR HEMOGLOBIN 28.4 pg (29.0-33.0); MEAN CORPUSCULAR HGB CONC 31.6 g/dl (32.0-37.0); MEAN PLATELET VOLUME 10.1 fl (7.4-10.4); MONOCYTE # 0.6 10^3/ul (0.3-0.9); MONOCYTES % 5.4 % (0.0-11.0); NEUTROPHIL # 9.1 10^3/ul (1.6-7.5); NEUTROPHILS % 78.3 % (39.0-77.0); PLATELET COUNT 222 10^3/UL (140-415); RED BLOOD COUNT 3.59 10^6/ul (4.70-6.10); RED CELL DISTRIBUTION WIDTH 14.3 % (11.5-14.5)
[2017-07-26 10:24] LABS: ALANINE AMINOTRANSFERASE 16 IU/L (13-69); ALBUMIN 3.3 g/dl (3.3-4.9); ALBUMIN/GLOBULIN RATIO 0.97; ALKALINE PHOSPHATASE 99 IU/L (42-121); ANION GAP 12 (8-16); ASPARTATE AMINO TRANSFERASE 30 IU/L (15-46); BILIRUBIN,INDIRECT 0.1 mg/dl (0-1.1); BILIRUBIN,TOTAL 0.1 mg/dl (0.2-1.3); BLOOD UREA NITROGEN 41 mg/dl (7-20); CALCIUM 8.4 mg/dl (8.4-10.2); CARBON DIOXIDE 26 mmol/L (21-31); CHLORIDE 105 mmol/L (97-110); CREATININE 4.08 mg/dl (0.61-1.24); GLUCOSE 115 mg/dl (70-220); POTASSIUM 4.7 mmol/L (3.5-5.1); SODIUM 138 mmol/L (135-144); TOTAL PROTEIN 6.7 g/dl (6.1-8.1)
[2017-07-26] MEDS: HEPARIN 1000 UNITS/ML 10 ML INJ CATHETER (12:41)
[2017-07-26] MEDS: HYDROCODONE/APAP (5/325) TAB PO (13:44)
[2017-07-26] MEDS: LACTULOSE 30ML CUP PO (13:58)
[2017-07-26] MEDS: ASPIRIN (EC) 81 MG TAB PO (20:22)
[2017-07-26] MEDS: INSULIN GLARGINE [LANtus] 3 ML PEN SC (20:26)
[2017-07-26] MEDS: NIFEdipine (XL) 60 MG TAB PO (21:03)
[2017-07-27] MEDS: HYDROmorphONE 0.5 MG/0.5 ML SYG IV ×4 (00:26→13:24)
[2017-07-27] MEDS: ZOLPIDEM 5 MG TAB PO (01:23)
[2017-07-27] MEDS: ACCUCHECK AT 2AM (Patients on SS coverage) XX (02:00)
[2017-07-27] MEDS: HYDROCODONE/APAP (5/325) TAB PO ×2 (06:48→15:18)
[2017-07-27] MEDS: Insulin NOVOLOG SS MILD Algorithm (SS with meals and bedtime) SC ×4 (07:30→20:32)
[2017-07-27] MEDS: LINAGLIPTIN 5 MG TABLET PO (08:28)
[2017-07-27] MEDS: ATORVASTATIN 80 MG TAB PO (08:29)
[2017-07-27] MEDS: METOPROLOL 25 MG TAB PO ×2 (08:31→20:31)
[2017-07-27] MEDS: ISOSORBIDE DINITRATE 20 MG TAB PO ×3 (08:31→20:31)
[2017-07-27] MEDS: CALCITRIOL 0.25 MCG CAP PO (08:31)
[2017-07-27] MEDS: LACTULOSE 30ML CUP PO (08:34)
[2017-07-27] MEDS: ALBUTEROL/IPRATROPIUM (NEB) 3 ML AMP HHN ×3 (09:15→19:56)
[2017-07-27 14:50] LABS: HEPATITIS B SURFACE ANTIBODY POSITIVE (NEGATIVE)
[2017-07-27] MEDS: HYDROmorphONE 2 MG TAB PO (18:59)
[2017-07-27] MEDS: ASPIRIN (EC) 81 MG TAB PO (20:31)
[2017-07-27] MEDS: NIFEdipine (XL) 60 MG TAB PO (20:31)
[2017-07-27] MEDS: INSULIN GLARGINE [LANtus] 3 ML PEN SC (20:33)
[2017-07-27] MEDS: LORAZEPAM 1 MG TAB PO (22:12)
[2017-07-28] MEDS: ZOLPIDEM 5 MG TAB PO ×2 (01:48→23:16)
[2017-07-28] MEDS: ACCUCHECK AT 2AM (Patients on SS coverage) XX (01:56)
[2017-07-28] MEDS: HYDROmorphONE 2 MG TAB PO ×4 (04:55→21:33)
[2017-07-28] MEDS: HYDROCODONE/APAP (5/325) TAB PO (06:39)
[2017-07-28] MEDS: Insulin NOVOLOG SS MILD Algorithm (SS with meals and bedtime) SC ×4 (07:30→21:31)
[2017-07-28] MEDS: ALBUTEROL/IPRATROPIUM (NEB) 3 ML AMP HHN ×3 (08:00→19:24)
[2017-07-28] MEDS: LORAZEPAM 1 MG TAB PO ×2 (08:05→14:09)
[2017-07-28] MEDS: HEPARIN 1000 UNITS/ML 10 ML INJ CATHETER (11:02)
[2017-07-28] MEDS: CALCITRIOL 0.25 MCG CAP PO (12:05)
[2017-07-28] MEDS: ATORVASTATIN 80 MG TAB PO (12:05)
[2017-07-28] MEDS: METOPROLOL 25 MG TAB PO ×2 (12:06→21:26)
[2017-07-28] MEDS: LINAGLIPTIN 5 MG TABLET PO (12:06)
[2017-07-28] MEDS: ISOSORBIDE DINITRATE 20 MG TAB PO ×3 (12:06→21:27)
[2017-07-28] MEDS: NIFEdipine (XL) 60 MG TAB PO (21:27)
[2017-07-28] MEDS: ASPIRIN (EC) 81 MG TAB PO (21:27)
[2017-07-28] MEDS: INSULIN GLARGINE [LANtus] 3 ML PEN SC (21:30)
[2017-07-28] MEDS: BISACODYL (EC) 5 MG TAB PO (22:31)
[2017-07-28] MEDS: LACTULOSE 30ML CUP PO (22:33)
[2017-07-29] MEDS: ACCUCHECK AT 2AM (Patients on SS coverage) XX (02:00)
[2017-07-29] MEDS: LORAZEPAM 1 MG TAB PO (02:31)
[2017-07-29 06:14] LABS: ADD MAN DIFF? NO
[2017-07-29 06:23] LABS: WHITE BLOOD COUNT 10.1 10^3/ul (4.8-10.8)
[2017-07-29 06:23] LABS: BASOPHIL # 0.1 10^3/ul (0.0-0.1); BASOPHILS % 0.5 % (0.0-2.0); EOSINOPHILS # 0.3 10^3/ul (0.0-0.5); HEMATOCRIT 33.9 % (42.0-52.0); HEMOGLOBIN 10.6 g/dl (14.0-18.0); LYMPHOCYTES # 1.5 10^3/ul (0.8-2.9); LYMPHOCYTES % 14.7 % (15.0-51.0); MEAN CORPUSCULAR HEMOGLOBIN 28.1 pg (29.0-33.0); MEAN CORPUSCULAR HGB CONC 31.3 g/dl (32.0-37.0); MEAN CORPUSCULAR VOLUME 89.9 fl (82.0-101.0); MEAN PLATELET VOLUME 10.2 fl (7.4-10.4); MONOCYTE # 0.8 10^3/ul (0.3-0.9); MONOCYTES % 7.4 % (0.0-11.0); NEUTROPHIL # 7.5 10^3/ul (1.6-7.5); NEUTROPHILS % 73.8 % (39.0-77.0); PLATELET COUNT 245 10^3/UL (140-415); RED BLOOD COUNT 3.77 10^6/ul (4.70-6.10); RED CELL DISTRIBUTION WIDTH 14.4 % (11.5-14.5)
[2017-07-29 06:47] LABS: ALANINE AMINOTRANSFERASE 26 IU/L (13-69); ALBUMIN 3.4 g/dl (3.3-4.9); ALBUMIN/GLOBULIN RATIO 1.03; ALKALINE PHOSPHATASE 108 IU/L (42-121); ANION GAP 16 (8-16); ASPARTATE AMINO TRANSFERASE 20 IU/L (15-46); BILIRUBIN,INDIRECT 0.2 mg/dl (0-1.1); BILIRUBIN,TOTAL 0.2 mg/dl (0.2-1.3); BLOOD UREA NITROGEN 23 mg/dl (7-20); CALCIUM 7.5 mg/dl (8.4-10.2); CARBON DIOXIDE 27 mmol/L (21-31); CHLORIDE 103 mmol/L (97-110); CREATININE 3.15 mg/dl (0.61-1.24); GLUCOSE 130 mg/dl (70-220); POTASSIUM 3.7 mmol/L (3.5-5.1); SODIUM 142 mmol/L (135-144); TOTAL PROTEIN 6.7 g/dl (6.1-8.1)
[2017-07-29] MEDS: HYDROmorphONE 2 MG TAB PO (07:10)
[2017-07-29] MEDS: Insulin NOVOLOG SS MILD Algorithm (SS with meals and bedtime) SC ×2 (07:30→11:30)
[2017-07-29] MEDS: ALBUTEROL/IPRATROPIUM (NEB) 3 ML AMP HHN (08:40)
[2017-07-29] MEDS: LINAGLIPTIN 5 MG TABLET PO (08:50)
[2017-07-29] MEDS: ATORVASTATIN 80 MG TAB PO (08:50)
[2017-07-29] MEDS: CALCITRIOL 0.25 MCG CAP PO (08:50)
[2017-07-29] MEDS: METOPROLOL 25 MG TAB PO (08:51)
[2017-07-29] MEDS: ISOSORBIDE DINITRATE 20 MG TAB PO (08:51)
== END 2017-07-29 12:25 | disposition home health service (06) | DRG 674 ==
LOC: PP2 11:48
PROC: 0JH63XZ Insertion of Tunneled Vascular Access Device into Chest Subcutaneous Tissue and Fascia, Percutaneous Approach (ICD-10-PCS; 2017-07-22 14:30)
PROC: 05HN33Z Insertion of Infusion Device into Left Internal Jugular Vein, Percutaneous Approach (ICD-10-PCS; 2017-07-22 14:30)
PROC: B514ZZA Fluoroscopy of Left Jugular Veins, Guidance (ICD-10-PCS; 2017-07-22 14:30)
PROC: 5A1D70Z Performance of Urinary Filtration, Intermittent, Less than 6 Hours Per Day (ICD-10-PCS; principal; 2017-07-22 14:36)
PROC: 5A1D70Z Performance of Urinary Filtration, Intermittent, Less than 6 Hours Per Day (ICD-10-PCS; 2017-07-22 14:36)
PROC: 5A1D70Z Performance of Urinary Filtration, Intermittent, Less than 6 Hours Per Day (ICD-10-PCS; 2017-07-22 14:36)
DX: N17.9 Acute kidney failure, unspecified (principal); I13.2 Hypertensive heart and chronic kidney disease with heart failure and with stage 5 chronic kidney disease, or end stage renal disease; I50.9 Heart failure, unspecified; F32.9 Major depressive disorder, single episode, unspecified; E11.319 Type 2 diabetes mellitus with unspecified diabetic retinopathy without macular edema; I25.10 Atherosclerotic heart disease of native coronary artery without angina pectoris; F41.9 Anxiety disorder, unspecified; D63.1 Anemia in chronic kidney disease; E11.22 Type 2 diabetes mellitus with diabetic chronic kidney disease; N18.6 End stage renal disease; E11.51 Type 2 diabetes mellitus with diabetic peripheral angiopathy without gangrene; E11.21 Type 2 diabetes mellitus with diabetic nephropathy; E78.5 Hyperlipidemia, unspecified; Z96.641 Presence of right artificial hip joint; Z79.4 Long term (current) use of insulin; Z87.891 Personal history of nicotine dependence; Z95.1 Presence of aortocoronary bypass graft; Z90.49 Acquired absence of other specified parts of digestive tract
CPT/HCPCS: 71045; 80053; 81001; 82962; 83735; 84100; 85025; 85610; 85730; 86704; 86706; 86709; 86803; 87340; 90935; 93005; 94640; 94664

== ENCOUNTER 2017-11-26 15:25 | Observation (INO) | payer MEDICARE, MEDICAID, OTHER ==
[2017-11-26 16:22] LABS: ADD MAN DIFF? NO
[2017-11-26 16:27] LABS: WHITE BLOOD COUNT 13.6 10^3/ul (4.8-10.8)
[2017-11-26 16:27] LABS: BASOPHIL # 0.1 10^3/ul (0.0-0.1); BASOPHILS % 0.4 % (0.0-2.0); EOSINOPHILS # 0.2 10^3/ul (0.0-0.5); EOSINOPHILS % 1.6 % (0.0-7.0); HEMATOCRIT 42.8 % (42.0-52.0); HEMOGLOBIN 14.6 g/dl (14.0-18.0); LYMPHOCYTES # 1.6 10^3/ul (0.8-2.9); LYMPHOCYTES % 11.4 % (15.0-51.0); MEAN CORPUSCULAR HEMOGLOBIN 29.7 pg (29.0-33.0); MEAN CORPUSCULAR HGB CONC 34.1 g/dl (32.0-37.0); MEAN PLATELET VOLUME 10.5 fl (7.4-10.4); MONOCYTE # 0.8 10^3/ul (0.3-0.9); NEUTROPHIL # 10.8 10^3/ul (1.6-7.5); NEUTROPHILS % 79.7 % (39.0-77.0); PLATELET COUNT 161 10^3/UL (140-415); RED BLOOD COUNT 4.92 10^6/ul (4.70-6.10); RED CELL DISTRIBUTION WIDTH 14.6 % (11.5-14.5)
[2017-11-26 16:39] LABS: ANION GAP 16 (8-16); BLOOD UREA NITROGEN 24 mg/dl (7-20); CARBON DIOXIDE 26 mmol/L (21-31); CHLORIDE 99 mmol/L (97-110); CREATININE 2.95 mg/dl (0.61-1.24); GLUCOSE 260 mg/dl (70-220); POTASSIUM 4.1 mmol/L (3.5-5.1); SODIUM 137 mmol/L (135-144)
[2017-11-26 16:50] LABS: TROPONIN-I < 0.012 ng/ml (0.000-0.120)
[2017-11-26 17:26] LABS: INR 1.11; PROTIME 14.5 Sec (11.9-14.9); PT RATIO 1.1
[2017-11-26 17:27] LABS: PARTIAL THROMBOPLASTIN TIME 29.6 Sec (25.0-35.0)
[2017-11-26] MEDS ORDERED: ONDANSETRON 4 MG INJ IV (18:00)
[2017-11-26] MEDS ORDERED: ACETAMINOPHEN 325 MG TAB PO ×2 (18:00→21:30)
[2017-11-26] MEDS: ASPIRIN 81 MG TAB PO (19:19)
[2017-11-26] MEDS ORDERED: INSULIN ASPART [NOVOLOG] 3 ML PEN SC ×2 (21:30→22:00)
[2017-11-26] MEDS: ALBUTEROL HFA 8 GM INHALER INH (21:30)
[2017-11-26] MEDS: HYDROmorphONE 1 MG/ML SYG IV (22:10)
[2017-11-26] MEDS: METOPROLOL 50 MG TAB PO (22:11)
[2017-11-26] MEDS ORDERED: ALBUTEROL HFA 8 GM INHALER INH (22:30)
[2017-11-26] MEDS: INSULIN GLARGINE [LANTus] (100 UNITS/ML) SYG SC (22:45)
[2017-11-26] MEDS: INSULIN ASPART [NOVOLOG] 3 ML PEN SC (22:58)
[2017-11-26] MEDS ORDERED: DEXTROSE 50% 50 ML SYRINGE IV ×2 (23:00)
[2017-11-26] MEDS ORDERED: GLUCAGON 1 MG INJ IM (23:00)
[2017-11-26] MEDS ORDERED: GLUCOSE GEL 15 GRAM TUBE BUCCAL (23:00)
[2017-11-26] MEDS ORDERED: GLUCOSE GEL 15 GRAM TUBE PO ×2 (23:00)
[2017-11-26 23:02] LABS: CREATINE KINASE 49 IU/L (23-200)
[2017-11-26 23:13] LABS: CK INDEX 4.2; CK-MB 2.07 ng/ml (0.0-2.4); TROPONIN-I < 0.012 ng/ml (0.000-0.120)
[2017-11-27] MEDS: ACCU-CHEK XX (01:35)
[2017-11-27] MEDS: HYDROmorphONE 1 MG/ML SYG IV ×3 (02:10→10:09)
[2017-11-27] MEDS: HYDROCODONE/APAP (10/325) TAB PO ×2 (04:15→12:20)
[2017-11-27] MEDS: ONDANSETRON 4 MG INJ IV ×2 (04:36→08:44)
[2017-11-27 04:42] LABS: ANION GAP 14 (8-16); BLOOD UREA NITROGEN 31 mg/dl (7-20); CALCIUM 8.7 mg/dl (8.4-10.2); CARBON DIOXIDE 29 mmol/L (21-31); CHLORIDE 100 mmol/L (97-110); GLUCOSE 224 mg/dl (70-220); MAGNESIUM 2.1 mg/dl (1.7-2.5); POTASSIUM 4.1 mmol/L (3.5-5.1); SODIUM 139 mmol/L (135-144)
[2017-11-27 04:47] LABS: CREATINE KINASE 44 IU/L (23-200)
[2017-11-27 04:54] LABS: CK INDEX 5.8; CK-MB 2.54 ng/ml (0.0-2.4); TROPONIN-I 0.019 ng/ml (0.000-0.120)
[2017-11-27] MEDS: FUROSEMIDE 40 MG TAB PO (06:12)
[2017-11-27] MEDS ORDERED: INSULIN ASPART [NOVOLOG] 3 ML PEN SC (07:25)
[2017-11-27] MEDS: INSULIN ASPART [NOVOLOG] 3 ML PEN SC ×2 (08:11→12:16)
[2017-11-27] MEDS: NIFEdipine (XL) 60 MG TAB PO (08:32)
[2017-11-27] MEDS: ASPIRIN (EC) 81 MG TAB PO (08:32)
[2017-11-27] MEDS: ISOSORBIDE DINITRATE 20 MG TAB PO ×2 (08:32→12:17)
[2017-11-27] MEDS: CALCITRIOL 0.25 MCG CAP PO (08:32)
[2017-11-27] MEDS: METOPROLOL 50 MG TAB PO (08:33)
[2017-11-27] MEDS: LINAGLIPTIN 5 MG TABLET PO (08:34)
[2017-11-27] MEDS: APIXABAN 5 MG TABLET PO (08:34)
[2017-11-27] MEDS ORDERED: NON-FORMULARY/PATIENT OWN MED (Linagliptin (Tradjenta) 5 MG) PO (09:00)
[2017-11-27] MEDS ORDERED: INSULIN GLARGINE HUM REC ANLOG SC (21:00)
[2017-11-27] MEDS ORDERED: [UNRECOGNIZED DRUG - OTHER] SC (21:00)
[2017-11-27] MEDS ORDERED: ATORVASTATIN 80 MG TAB PO (21:00)
== END 2017-11-27 13:15 | disposition home or self-care (01) ==
LOC: E/R 15:25 → TEL 17:40
DX: R07.89 Other chest pain (principal); Z86.718 Personal history of other venous thrombosis and embolism; E11.22 Type 2 diabetes mellitus with diabetic chronic kidney disease; I12.0 Hypertensive chronic kidney disease with stage 5 chronic kidney disease or end stage renal disease; N18.6 End stage renal disease; Z99.2 Dependence on renal dialysis; I25.10 Atherosclerotic heart disease of native coronary artery without angina pectoris; F32.9 Major depressive disorder, single episode, unspecified; F41.9 Anxiety disorder, unspecified; Z95.1 Presence of aortocoronary bypass graft
CPT/HCPCS: 36415; 71045; 80048; 82550; 82553; 82962; 83735; 84100; 84484; 85025; 85610; 85730; 93005; 93970; 99285-25; G0378

== ENCOUNTER 2018-11-24 16:06 | Inpatient (IN) | payer MEDICARE, MEDICAID ==
[2018-11-24 16:52] LABS: ADD MAN DIFF? NO
[2018-11-24 16:59] LABS: BASOPHILS % 0.3 % (0.0-2.0); EOSINOPHILS # 0.1 10^3/ul (0.0-0.5); HEMATOCRIT 31.4 % (42.0-52.0); HEMOGLOBIN 9.9 g/dl (14.0-18.0); LYMPHOCYTES # 0.6 10^3/ul (0.8-2.9); LYMPHOCYTES % 4.3 % (15.0-51.0); MEAN CORPUSCULAR HEMOGLOBIN 29.4 pg (29.0-33.0); MEAN CORPUSCULAR HGB CONC 31.5 g/dl (32.0-37.0); MEAN CORPUSCULAR VOLUME 93.2 fl (82.0-101.0); MEAN PLATELET VOLUME 10.3 fl (7.4-10.4); MONOCYTE # 0.8 10^3/ul (0.3-0.9); MONOCYTES % 5.8 % (0.0-11.0); NEUTROPHIL # 12.4 10^3/ul (1.6-7.5); PLATELET COUNT 245 10^3/UL (140-415); RED BLOOD COUNT 3.37 10^6/ul (4.70-6.10)
[2018-11-24 16:59] LABS: WHITE BLOOD COUNT 14.1 10^3/ul (4.8-10.8)
[2018-11-24] MEDS ORDERED: ONDANSETRON 4 MG INJ IV (17:00)
[2018-11-24] MEDS ORDERED: ACETAMINOPHEN 325 MG TAB PO (17:00)
[2018-11-24 17:16] LABS: ALANINE AMINOTRANSFERASE 49 IU/L (13-69); ALBUMIN 3.8 g/dl (3.3-4.9); ALKALINE PHOSPHATASE 240 IU/L (42-121); ANION GAP 15 (5-13); ASPARTATE AMINO TRANSFERASE 27 IU/L (15-46); BILIRUBIN,INDIRECT 0.1 mg/dl (0-1.1); BILIRUBIN,TOTAL 0.1 mg/dl (0.2-1.3); BLOOD UREA NITROGEN 54 mg/dl (7-20); CALCIUM 8.3 mg/dl (8.4-10.2); CARBON DIOXIDE 23 mmol/L (21-31); CHLORIDE 92 mmol/L (97-110); Estimated GFR 7 mL/min (>60); GLUCOSE 100 mg/dl (70-220); SODIUM 130 mmol/L (135-144); TOTAL PROTEIN 7.6 g/dl (6.1-8.1)
[2018-11-24 17:19] LABS: INR 1.18; PROTIME 15.1 Sec (11.9-14.9); PT RATIO 1.2
[2018-11-24 17:20] LABS: PARTIAL THROMBOPLASTIN TIME 36.9 Sec (23.0-35.0)
[2018-11-24] MEDS: PIPER-TAZO 3.375 GM IV (PMX) 100 ML IVPB (17:20)
[2018-11-24] MEDS: HYDROmorphONE 0.5 MG/0.5 ML SYG IV ×2 (17:27→22:40)
[2018-11-24] MEDS ORDERED: NACL 0.9% 3 ML SYG IV (17:30)
[2018-11-24] MEDS ORDERED: VANCOMYCIN IV PER PHARMACY XX (17:30)
[2018-11-24] MEDS: VANCOMYCIN 1 GM (PMX) 250 ML IVPB (17:59)
[2018-11-24] MEDS: INSULIN ASPART [NOVOLOG] 3 ML PEN SC ×2 (18:00→22:56)
[2018-11-24] MEDS: HYDROCODONE/APAP (5/325) TAB PO (18:46)
[2018-11-24 19:17] LABS: LACTIC ACID 0.9 mmol/L (0.5-2.0)
[2018-11-24 21:17] LABS: LACTIC ACID 0.7 mmol/L (0.5-2.0)
[2018-11-24] MEDS: ATORVASTATIN 80 MG TAB PO (22:39)
[2018-11-24] MEDS: PIPER-TAZO 2.25 GM (PMX) 50 ML IVPB (22:46)
[2018-11-24] MEDS: METOPROLOL 50 MG TAB PO (22:46)
[2018-11-24] MEDS: HEPARIN 5,000 UNIT/1 ML VIAL SC (22:56)
[2018-11-24] MEDS: ONDANSETRON 4 MG INJ IV (23:25)
[2018-11-25] MEDS: ACCU-CHEK XX (02:00)
[2018-11-25] MEDS: HYDROmorphONE 0.5 MG/0.5 ML SYG IV ×2 (02:26→06:25)
[2018-11-25] MEDS ORDERED: PIPER-TAZO 2.25 GM (PMX) 50 ML IVPB (05:00)
[2018-11-25] MEDS: PIPER-TAZO 2.25 GM (PMX) 50 ML IVPB ×3 (05:38→22:13)
[2018-11-25] MEDS: HEPARIN 5,000 UNIT/1 ML VIAL SC (05:45)
[2018-11-25 06:20] LABS: ADD MAN DIFF? NO
[2018-11-25 06:30] LABS: BASOPHILS % 0.4 % (0.0-2.0); EOSINOPHILS # 0.3 10^3/ul (0.0-0.5); EOSINOPHILS % 2.8 % (0.0-7.0); HEMATOCRIT 32.1 % (42.0-52.0); HEMOGLOBIN 10.2 g/dl (14.0-18.0); LYMPHOCYTES # 0.6 10^3/ul (0.8-2.9); LYMPHOCYTES % 7.2 % (15.0-51.0); MEAN CORPUSCULAR HEMOGLOBIN 29.2 pg (29.0-33.0); MEAN CORPUSCULAR HGB CONC 31.8 g/dl (32.0-37.0); MEAN PLATELET VOLUME 10.5 fl (7.4-10.4); MONOCYTE # 0.5 10^3/ul (0.3-0.9); MONOCYTES % 5.2 % (0.0-11.0); NEUTROPHIL # 7.5 10^3/ul (1.6-7.5); NEUTROPHILS % 83.7 % (39.0-77.0); PLATELET COUNT 248 10^3/UL (140-415); RED BLOOD COUNT 3.49 10^6/ul (4.70-6.10); RED CELL DISTRIBUTION WIDTH 15.3 % (11.5-14.5)
[2018-11-25 06:30] LABS: WHITE BLOOD COUNT 8.9 10^3/ul (4.8-10.8)
[2018-11-25 06:39] LABS: ALANINE AMINOTRANSFERASE 47 IU/L (13-69); ALBUMIN 3.2 g/dl (3.3-4.9); ALBUMIN/GLOBULIN RATIO 0.91; ALKALINE PHOSPHATASE 231 IU/L (42-121); ANION GAP 16 (5-13); ASPARTATE AMINO TRANSFERASE 30 IU/L (15-46); BILIRUBIN,INDIRECT 0.3 mg/dl (0-1.1); BILIRUBIN,TOTAL 0.3 mg/dl (0.2-1.3); BLOOD UREA NITROGEN 56 mg/dl (7-20); CARBON DIOXIDE 22 mmol/L (21-31); CHLORIDE 92 mmol/L (97-110); CHOL/HDL RATIO 3.7 RATIO; CHOLESTEROL 89 mg/dl (100-200); CREATININE 7.42 mg/dl (0.61-1.24); Estimated GFR 8 mL/min (>60); GLUCOSE 152 mg/dl (70-220); HDL CHOLESTEROL 24 mg/dl (28-71); LDL CHOLESTEROL,CALCULATED 38 mg/dl; MAGNESIUM 2.1 mg/dl (1.7-2.5); PHOSPHORUS 6.9 mg/dl (2.5-4.9); POTASSIUM 4.6 mmol/L (3.5-5.1); SODIUM 130 mmol/L (135-144); TOTAL PROTEIN 6.7 g/dl (6.1-8.1); TRIGLYCERIDES 136 mg/dl (0-149)
[2018-11-25 06:46] LABS: TROPONIN-I 0.112 ng/ml (0.000-0.120)
[2018-11-25 06:55] LABS: C-REACTIVE PROTEIN 7.5 mg/dl (0.0-0.9)
[2018-11-25 06:59] LABS: HEMOGLOBIN A1C 8.1 % (0-5.9)
[2018-11-25 08:31] LABS: ERYTHROCYTE SEDIMENTATION RATE 75 mm/Hr (0-20)
[2018-11-25] MEDS: ASPIRIN 81 MG TAB PO (08:54)
[2018-11-25] MEDS: METOPROLOL 50 MG TAB PO ×2 (08:54→20:35)
[2018-11-25] MEDS: HYDROCODONE/APAP (5/325) TAB PO (08:54)
[2018-11-25] MEDS ORDERED: ENOXAPARIN 30 MG/0.3 ML SYG SC (09:00)
[2018-11-25] MEDS: INSULIN ASPART [NOVOLOG] 3 ML PEN SC ×4 (09:35→20:36)
[2018-11-25] MEDS: APIXABAN 5 MG TABLET PO ×2 (10:47→20:35)
[2018-11-25] MEDS: HYDROmorphONE 1 MG/ML SYG IV ×4 (10:47→23:31)
[2018-11-25] MEDS: CALCIUM ACETATE 667 MG CAP PO ×2 (12:31→17:43)
[2018-11-25] MEDS ORDERED: PENDING SANTYL ORDER FOR WOUND CARE XX (14:30)
[2018-11-25] MEDS: ONDANSETRON 4 MG INJ IV (17:42)
[2018-11-25] MEDS: ATORVASTATIN 80 MG TAB PO (20:34)
[2018-11-26] MEDS: ACCU-CHEK XX (02:00)
[2018-11-26] MEDS: HYDROmorphONE 1 MG/ML SYG IV ×2 (03:35→07:53)
[2018-11-26] MEDS: PIPER-TAZO 2.25 GM (PMX) 50 ML IVPB ×3 (05:44→21:24)
[2018-11-26 07:01] LABS: VANCOMYCIN,RANDOM 10.5 ug/ml
[2018-11-26 07:44] LABS: IRON 65 ug/dl (35-150)
[2018-11-26 07:53] LABS: % IRON SATURATION 26 % SAT (22-52); TOTAL IRON BINDING CAPACITY 248 ug/dl (241-421)
[2018-11-26] MEDS: INSULIN ASPART [NOVOLOG] 3 ML PEN SC ×4 (08:04→21:13)
[2018-11-26] MEDS: LIDOCAINE 2% (MDV) 20 ML INJ INJ (08:54)
[2018-11-26 09:23] LABS: HEPATITIS B SURFACE ANTIGEN NEGATIVE (NEGATIVE)
[2018-11-26] MEDS ORDERED: NIFEdipine (XL) 30 MG TAB PO (09:30)
[2018-11-26] MEDS: MULTIVIT/CA CARB/B CMPLX/FA TAB PO (09:47)
[2018-11-26] MEDS: CALCIUM ACETATE 667 MG CAP PO ×3 (09:48→17:11)
[2018-11-26] MEDS: ASPIRIN 81 MG TAB PO (09:48)
[2018-11-26] MEDS: APIXABAN 5 MG TABLET PO ×2 (09:48→20:59)
[2018-11-26] MEDS: METOPROLOL 50 MG TAB PO ×2 (11:07→20:59)
[2018-11-26] MEDS: HYDROmorphONE 2 MG/ML SYG IV ×3 (12:22→21:01)
[2018-11-26] MEDS: VANCOMYCIN 1 GM 250 ML IVPB (12:23)
[2018-11-26] MEDS: HYDROCODONE/APAP (5/325) TAB PO (20:02)
[2018-11-26] MEDS: ATORVASTATIN 80 MG TAB PO (20:59)
[2018-11-27] MEDS: HYDROmorphONE 2 MG/ML SYG IV ×6 (00:58→20:35)
[2018-11-27] MEDS: ACCU-CHEK XX (01:59)
[2018-11-27] MEDS: HYDROCODONE/APAP (5/325) TAB PO (03:14)
[2018-11-27] MEDS: PIPER-TAZO 2.25 GM (PMX) 50 ML IVPB ×3 (05:12→22:53)
[2018-11-27 05:40] LABS: ADD MAN DIFF? NO
[2018-11-27 05:42] LABS: WHITE BLOOD COUNT 8.1 10^3/ul (4.8-10.8)
[2018-11-27 05:42] LABS: BASOPHILS % 0.5 % (0.0-2.0); EOSINOPHILS # 0.3 10^3/ul (0.0-0.5); EOSINOPHILS % 3.2 % (0.0-7.0); HEMATOCRIT 32.4 % (42.0-52.0); HEMOGLOBIN 9.9 g/dl (14.0-18.0); LYMPHOCYTES # 0.9 10^3/ul (0.8-2.9); LYMPHOCYTES % 10.9 % (15.0-51.0); MEAN CORPUSCULAR HEMOGLOBIN 29.1 pg (29.0-33.0); MEAN CORPUSCULAR HGB CONC 30.6 g/dl (32.0-37.0); MEAN CORPUSCULAR VOLUME 95.3 fl (82.0-101.0); MEAN PLATELET VOLUME 10.2 fl (7.4-10.4); MONOCYTE # 0.5 10^3/ul (0.3-0.9); MONOCYTES % 6.3 % (0.0-11.0); NEUTROPHIL # 6.3 10^3/ul (1.6-7.5); PLATELET COUNT 261 10^3/UL (140-415); RED CELL DISTRIBUTION WIDTH 15.3 % (11.5-14.5)
[2018-11-27 06:12] LABS: ANION GAP 12 (5-13); BLOOD UREA NITROGEN 39 mg/dl (7-20); CALCIUM 8.7 mg/dl (8.4-10.2); CARBON DIOXIDE 25 mmol/L (21-31); CHLORIDE 97 mmol/L (97-110); CREATININE 6.01 mg/dl (0.61-1.24); Estimated GFR 10 mL/min (>60); GLUCOSE 153 mg/dl (70-220); POTASSIUM 4.5 mmol/L (3.5-5.1); SODIUM 134 mmol/L (135-144)
[2018-11-27] MEDS: MULTIVIT/CA CARB/B CMPLX/FA TAB PO (08:06)
[2018-11-27] MEDS: ASPIRIN 81 MG TAB PO (08:07)
[2018-11-27] MEDS: APIXABAN 5 MG TABLET PO ×2 (08:07→20:40)
[2018-11-27] MEDS: CALCIUM ACETATE 667 MG CAP PO ×3 (08:07→17:13)
[2018-11-27] MEDS: METOPROLOL 50 MG TAB PO ×2 (08:07→20:43)
[2018-11-27] MEDS: INSULIN ASPART [NOVOLOG] 3 ML PEN SC ×4 (08:10→21:01)
[2018-11-27] MEDS ORDERED: hydrALAzine 20 MG INJ IV (12:30)
[2018-11-27] MEDS: LIDOCAINE 1% (MPF) 5 ML VIAL INFIL (13:30)
[2018-11-27] MEDS: ONDANSETRON 4 MG INJ IV (18:30)
[2018-11-27] MEDS: ATORVASTATIN 80 MG TAB PO (20:41)
[2018-11-28] MEDS: HYDROmorphONE 2 MG/ML SYG IV ×5 (00:31→21:32)
[2018-11-28] MEDS: ACCU-CHEK XX (02:00)
[2018-11-28 05:32] LABS: ADD MAN DIFF? NO
[2018-11-28 05:41] LABS: BASOPHILS % 0.4 % (0.0-2.0); EOSINOPHILS # 0.3 10^3/ul (0.0-0.5); EOSINOPHILS % 3.1 % (0.0-7.0); HEMATOCRIT 31.5 % (42.0-52.0); HEMOGLOBIN 9.7 g/dl (14.0-18.0); LYMPHOCYTES # 0.8 10^3/ul (0.8-2.9); LYMPHOCYTES % 8.1 % (15.0-51.0); MEAN CORPUSCULAR HGB CONC 30.8 g/dl (32.0-37.0); MEAN PLATELET VOLUME 9.8 fl (7.4-10.4); MONOCYTE # 0.5 10^3/ul (0.3-0.9); MONOCYTES % 4.7 % (0.0-11.0); NEUTROPHIL # 8.6 10^3/ul (1.6-7.5); NEUTROPHILS % 82.5 % (39.0-77.0); PLATELET COUNT 265 10^3/UL (140-415); RED BLOOD COUNT 3.35 10^6/ul (4.70-6.10); RED CELL DISTRIBUTION WIDTH 15.2 % (11.5-14.5)
[2018-11-28 05:41] LABS: WHITE BLOOD COUNT 10.4 10^3/ul (4.8-10.8)
[2018-11-28 06:03] LABS: ANION GAP 15 (5-13); BLOOD UREA NITROGEN 47 mg/dl (7-20); CALCIUM 8.8 mg/dl (8.4-10.2); CARBON DIOXIDE 23 mmol/L (21-31); CHLORIDE 96 mmol/L (97-110); CREATININE 6.78 mg/dl (0.61-1.24); Estimated GFR 8 mL/min (>60); GLUCOSE 182 mg/dl (70-220); POTASSIUM 4.5 mmol/L (3.5-5.1); SODIUM 134 mmol/L (135-144)
[2018-11-28] MEDS: PIPER-TAZO 2.25 GM (PMX) 50 ML IVPB ×2 (06:40→18:45)
[2018-11-28] MEDS: INSULIN ASPART [NOVOLOG] 3 ML PEN SC ×4 (08:43→21:43)
[2018-11-28] MEDS: APIXABAN 5 MG TABLET PO ×2 (09:09→21:47)
[2018-11-28] MEDS: CALCIUM ACETATE 667 MG CAP PO ×3 (09:09→17:07)
[2018-11-28] MEDS: ASPIRIN 81 MG TAB PO (09:09)
[2018-11-28] MEDS: MULTIVIT/CA CARB/B CMPLX/FA TAB PO (09:09)
[2018-11-28] MEDS: NIFEdipine (XL) 60 MG TAB PO (09:10)
[2018-11-28] MEDS: ISOSORBIDE DINITRATE 20 MG TAB PO ×3 (09:10→21:40)
[2018-11-28] MEDS: METOPROLOL 50 MG TAB PO ×2 (09:10→21:39)
[2018-11-28] MEDS: HYDROmorphONE 1 MG/ML SYG IV (13:08)
[2018-11-28] MEDS: HYDROCODONE/APAP (5/325) TAB PO ×2 (13:59→22:51)
[2018-11-28] MEDS ORDERED: HYDROmorphONE 1 MG/ML SYG IV (14:30)
[2018-11-28] MEDS ORDERED: HYDROmorphONE 0.5 MG/0.5 ML SYG IV (14:30)
[2018-11-28] MEDS: LIDOCAINE 1% (MDV) 20 ML INJ INJ (15:15)
[2018-11-28] MEDS: ATORVASTATIN 80 MG TAB PO (21:47)
[2018-11-29] MEDS: ACCU-CHEK XX (02:00)
[2018-11-29] MEDS: PIPER-TAZO 2.25 GM (PMX) 50 ML IVPB ×3 (02:06→17:54)
[2018-11-29] MEDS: HYDROmorphONE 2 MG/ML SYG IV ×3 (02:07→21:56)
[2018-11-29 06:21] LABS: ADD MAN DIFF? NO
[2018-11-29 06:24] LABS: WHITE BLOOD COUNT 11.4 10^3/ul (4.8-10.8)
[2018-11-29 06:25] LABS: BASOPHILS % 0.4 % (0.0-2.0); EOSINOPHILS # 0.3 10^3/ul (0.0-0.5); EOSINOPHILS % 2.5 % (0.0-7.0); HEMATOCRIT 30.9 % (42.0-52.0); HEMOGLOBIN 9.7 g/dl (14.0-18.0); LYMPHOCYTES # 1.1 10^3/ul (0.8-2.9); LYMPHOCYTES % 9.3 % (15.0-51.0); MEAN CORPUSCULAR HEMOGLOBIN 29.3 pg (29.0-33.0); MEAN CORPUSCULAR HGB CONC 31.4 g/dl (32.0-37.0); MEAN CORPUSCULAR VOLUME 93.4 fl (82.0-101.0); MEAN PLATELET VOLUME 10.2 fl (7.4-10.4); MONOCYTE # 0.5 10^3/ul (0.3-0.9); MONOCYTES % 4.3 % (0.0-11.0); NEUTROPHIL # 9.3 10^3/ul (1.6-7.5); PLATELET COUNT 297 10^3/UL (140-415); RED BLOOD COUNT 3.31 10^6/ul (4.70-6.10); RED CELL DISTRIBUTION WIDTH 15.4 % (11.5-14.5)
[2018-11-29 06:44] LABS: ANION GAP 10 (5-13); BLOOD UREA NITROGEN 31 mg/dl (7-20); CALCIUM 8.6 mg/dl (8.4-10.2); CARBON DIOXIDE 28 mmol/L (21-31); CHLORIDE 97 mmol/L (97-110); CREATININE 5.11 mg/dl (0.61-1.24); Estimated GFR 12 mL/min (>60); GLUCOSE 228 mg/dl (70-220); POTASSIUM 4.2 mmol/L (3.5-5.1); SODIUM 135 mmol/L (135-144)
[2018-11-29] MEDS: CALCIUM ACETATE 667 MG CAP PO ×3 (08:00→17:54)
[2018-11-29] MEDS: INSULIN ASPART [NOVOLOG] 3 ML PEN SC ×4 (08:36→20:13)
[2018-11-29] MEDS: MULTIVIT/CA CARB/B CMPLX/FA TAB PO (09:42)
[2018-11-29] MEDS: L ACIDOPHIL/B LACTIS/B LONGUM CAPSULE PO ×2 (09:43→20:12)
[2018-11-29] MEDS: ISOSORBIDE DINITRATE 20 MG TAB PO ×3 (09:43→20:12)
[2018-11-29] MEDS: ASPIRIN 81 MG TAB PO (09:43)
[2018-11-29] MEDS: METOPROLOL 50 MG TAB PO ×2 (09:43→20:13)
[2018-11-29] MEDS: APIXABAN 5 MG TABLET PO ×2 (09:44→20:12)
[2018-11-29] MEDS: NIFEdipine (XL) 60 MG TAB PO (09:44)
[2018-11-29] MEDS ORDERED: LIDOCAINE 1% (MDV) 20 ML INJ (12:11)
[2018-11-29] MEDS ORDERED: ETOMIDATE 20 MG INJ (12:11)
[2018-11-29] MEDS ORDERED: CEFAZOLIN 1 GM INJ (12:18)
[2018-11-29] MEDS ORDERED: ONDANSETRON 4 MG INJ (12:22)
[2018-11-29] MEDS ORDERED: FENTAnyl 50 MCG/ML VIAL (12:44)
[2018-11-29] MEDS: ROPIVACAINE 0.5 % 30 ML VIAL (12:54)
[2018-11-29] MEDS ORDERED: LEVALBUTEROL (NEB) 0.63 MG/3 ML AMP HHN (13:00)
[2018-11-29] MEDS ORDERED: OXYCODONE/ACETAMINOPHEN (5/325) TAB PO ×2 (13:00)
[2018-11-29] MEDS ORDERED: EPHEDrine 25 MG/5 ML SYG IV (13:00)
[2018-11-29] MEDS ORDERED: LABETALOL HCL 20MG INJ IV (13:00)
[2018-11-29] MEDS ORDERED: ALBUTEROL 0.083% (NEB) 2.5 MG/3 ML AMP HHN (13:00)
[2018-11-29] MEDS ORDERED: HYDROmorphONE 1 MG/5 ML IV SYRINGE IV ×3 (13:00)
[2018-11-29] MEDS ORDERED: morphine 2 MG INJ IV ×2 (13:00)
[2018-11-29] MEDS ORDERED: FENTAnyl 50 MCG/ML VIAL IV ×2 (13:00)
[2018-11-29] MEDS ORDERED: hydrALAzine 20 MG INJ IV (13:00)
[2018-11-29] MEDS ORDERED: DIPHENHYDRAMINE 50 MG INJ IV (13:00)
[2018-11-29] MEDS ORDERED: KETOROLAC 15 MG INJ IV (13:00)
[2018-11-29] MEDS ORDERED: ONDANSETRON 4 MG INJ IV (13:00)
[2018-11-29] MEDS: ONDANSETRON 4 MG INJ IV (14:45)
[2018-11-29] MEDS: EPOETIN ALFA-EPBX (ESRD) 10,000 UNIT/ML VIAL SC (17:56)
[2018-11-29] MEDS: HYDROCODONE/APAP (5/325) TAB PO (20:08)
[2018-11-29] MEDS: ATORVASTATIN 80 MG TAB PO (21:42)
[2018-11-30] MEDS: HYDROCODONE/APAP (5/325) TAB PO ×3 (00:28→20:48)
[2018-11-30] MEDS: HYDROmorphONE 2 MG/ML SYG IV ×6 (01:58→22:36)
[2018-11-30] MEDS: ACCU-CHEK XX (02:00)
[2018-11-30] MEDS: PIPER-TAZO 2.25 GM (PMX) 50 ML IVPB ×3 (02:04→19:00)
[2018-11-30 05:50] LABS: ADD MAN DIFF? NO
[2018-11-30 05:54] LABS: BASOPHILS % 0.3 % (0.0-2.0); EOSINOPHILS # 0.3 10^3/ul (0.0-0.5); EOSINOPHILS % 2.5 % (0.0-7.0); HEMATOCRIT 27.9 % (42.0-52.0); HEMOGLOBIN 8.7 g/dl (14.0-18.0); LYMPHOCYTES % 9.3 % (15.0-51.0); MEAN CORPUSCULAR HEMOGLOBIN 29.5 pg (29.0-33.0); MEAN CORPUSCULAR HGB CONC 31.2 g/dl (32.0-37.0); MEAN CORPUSCULAR VOLUME 94.6 fl (82.0-101.0); MEAN PLATELET VOLUME 10.3 fl (7.4-10.4); MONOCYTE # 0.5 10^3/ul (0.3-0.9); MONOCYTES % 4.3 % (0.0-11.0); NEUTROPHIL # 8.8 10^3/ul (1.6-7.5); NEUTROPHILS % 82.4 % (39.0-77.0); PLATELET COUNT 260 10^3/UL (140-415); RED BLOOD COUNT 2.95 10^6/ul (4.70-6.10); RED CELL DISTRIBUTION WIDTH 15.9 % (11.5-14.5)
[2018-11-30 05:54] LABS: WHITE BLOOD COUNT 10.7 10^3/ul (4.8-10.8)
[2018-11-30 06:26] LABS: ANION GAP 12 (5-13); BLOOD UREA NITROGEN 35 mg/dl (7-20); CARBON DIOXIDE 24 mmol/L (21-31); CHLORIDE 98 mmol/L (97-110); CREATININE 6.02 mg/dl (0.61-1.24); Estimated GFR 10 mL/min (>60); GLUCOSE 171 mg/dl (70-220); POTASSIUM 4.1 mmol/L (3.5-5.1); SODIUM 134 mmol/L (135-144)
[2018-11-30] MEDS ORDERED: CALCIUM ACETATE 667 MG CAP (08:09)
[2018-11-30] MEDS: INSULIN ASPART [NOVOLOG] 3 ML PEN SC ×4 (08:11→20:55)
[2018-11-30] MEDS: ASPIRIN 81 MG TAB PO (08:13)
[2018-11-30] MEDS: MULTIVIT/CA CARB/B CMPLX/FA TAB PO (08:13)
[2018-11-30] MEDS: L ACIDOPHIL/B LACTIS/B LONGUM CAPSULE PO ×2 (08:13→20:53)
[2018-11-30] MEDS: APIXABAN 5 MG TABLET PO ×2 (08:14→20:53)
[2018-11-30] MEDS: METOPROLOL 50 MG TAB PO ×2 (08:14→20:54)
[2018-11-30] MEDS: NIFEdipine (XL) 60 MG TAB PO (08:15)
[2018-11-30] MEDS: ISOSORBIDE DINITRATE 20 MG TAB PO ×3 (08:15→20:54)
[2018-11-30] MEDS: CALCIUM ACETATE 667 MG CAP PO ×3 (08:28→19:01)
[2018-11-30 08:56] LABS: PHOSPHORUS 5.9 mg/dl (2.5-4.9)
[2018-11-30 10:58] LABS: PARATHYROID HORMONE 370.1 pg/ml (24.0-73.0)
[2018-11-30] MEDS: morphine 2 MG INJ IV (13:41)
[2018-11-30] MEDS: LIDOCAINE 1% (MDV) 20 ML INJ INJ (15:36)
[2018-11-30] MEDS: ATORVASTATIN 80 MG TAB PO (20:54)
[2018-11-30] MEDS: INSULIN GLARGINE [LANTus] (100 UNITS/ML) SYG SC (21:03)
[2018-11-30] MEDS: LORAZEPAM 1 MG TAB PO (23:53)
[2018-12-01] MEDS: PIPER-TAZO 2.25 GM (PMX) 50 ML IVPB ×3 (01:58→18:09)
[2018-12-01] MEDS: HYDROmorphONE 2 MG/ML SYG IV ×5 (02:37→23:30)
[2018-12-01] MEDS: ACCU-CHEK XX (02:43)
[2018-12-01] MEDS: HYDROCODONE/APAP (5/325) TAB PO ×2 (03:36→09:41)
[2018-12-01] MEDS: ALBUTEROL/IPRATROPIUM (NEB) 3 ML AMP HHN (04:40)
[2018-12-01] MEDS: CALCIUM ACETATE 667 MG CAP PO ×3 (08:06→18:09)
[2018-12-01] MEDS: MULTIVIT/CA CARB/B CMPLX/FA TAB PO (08:06)
[2018-12-01] MEDS: ISOSORBIDE DINITRATE 20 MG TAB PO ×3 (08:08→21:32)
[2018-12-01] MEDS: NIFEdipine (XL) 60 MG TAB PO (08:08)
[2018-12-01] MEDS: L ACIDOPHIL/B LACTIS/B LONGUM CAPSULE PO ×2 (08:08→21:30)
[2018-12-01] MEDS: ASPIRIN 81 MG TAB PO (08:08)
[2018-12-01] MEDS: APIXABAN 5 MG TABLET PO ×2 (08:08→21:31)
[2018-12-01] MEDS: METOPROLOL 50 MG TAB PO ×2 (08:09→22:34)
[2018-12-01] MEDS: INSULIN ASPART [NOVOLOG] 3 ML PEN SC ×4 (08:15→21:00)
[2018-12-01] MEDS: ONDANSETRON 4 MG INJ IV ×2 (12:27→20:12)
[2018-12-01] MEDS ORDERED: GLUCAGON 1 MG INJ IM (13:30)
[2018-12-01] MEDS ORDERED: GLUCOSE GEL 15 GRAM TUBE PO ×2 (13:30)
[2018-12-01] MEDS ORDERED: GLUCOSE GEL 15 GRAM TUBE BUCCAL (13:30)
[2018-12-01] MEDS ORDERED: DEXTROSE 50% 50 ML SYRINGE IV ×2 (13:30)
[2018-12-01] MEDS: EPOETIN ALFA-EPBX (ESRD) 10,000 UNIT/ML VIAL SC (18:11)
[2018-12-01 20:37] LABS: AADO2 Arterial 609.5 mmHg (7.0-24.0); Allen Test ACCEPTAB; Arterial Base Excess -0.6 mmol/L (-3.0-3); Arterial COHb 0.9 % (0.0-3.0); Arterial Fraction of Oxyhgb 90.9 % (93.0-99.0); Arterial HCO3 23.8 mmol/L (22.0-26.0); Arterial MetHb 0.3 % (0.0-1.5); Arterial pCO2 38.4 mmhg (35-45); MODE MASK - NRB; Site Right Radial
[2018-12-01 21:15] LABS: B-TYPE NATRIURETIC PEPTIDE 30300 PG/ML (0-125)
[2018-12-01] MEDS: ATORVASTATIN 80 MG TAB PO (21:30)
[2018-12-01] MEDS: INSULIN GLARGINE [LANTus] (100 UNITS/ML) SYG SC (21:39)
[2018-12-02 01:22] LABS: CREATINE KINASE 28 IU/L (23-200)
[2018-12-02 01:37] LABS: CK INDEX 2.5; CK-MB 0.69 ng/ml (0.0-2.4); TROPONIN-I 0.012 ng/ml (0.000-0.120)
[2018-12-02] MEDS: PIPER-TAZO 2.25 GM (PMX) 50 ML IVPB ×3 (02:11→17:04)
[2018-12-02] MEDS: LORAZEPAM 1 MG TAB PO ×3 (02:12→22:04)
[2018-12-02] MEDS: ACCU-CHEK XX (02:12)
[2018-12-02] MEDS: HYDROmorphONE 2 MG/ML SYG IV ×5 (04:00→20:40)
[2018-12-02 05:59] LABS: ADD MAN DIFF? NO
[2018-12-02 06:00] LABS: BASOPHIL # 0.1 10^3/ul (0.0-0.1); BASOPHILS % 0.4 % (0.0-2.0); EOSINOPHILS # 0.3 10^3/ul (0.0-0.5); EOSINOPHILS % 2.4 % (0.0-7.0); LYMPHOCYTES # 0.9 10^3/ul (0.8-2.9); LYMPHOCYTES % 7.7 % (15.0-51.0); MEAN CORPUSCULAR HEMOGLOBIN 29.4 pg (29.0-33.0); MEAN CORPUSCULAR VOLUME 94.8 fl (82.0-101.0); MEAN PLATELET VOLUME 10.5 fl (7.4-10.4); MONOCYTE # 0.5 10^3/ul (0.3-0.9); MONOCYTES % 4.3 % (0.0-11.0); NEUTROPHIL # 10.1 10^3/ul (1.6-7.5); NEUTROPHILS % 84.1 % (39.0-77.0); PLATELET COUNT 265 10^3/UL (140-415); RED BLOOD COUNT 3.06 10^6/ul (4.70-6.10); RED CELL DISTRIBUTION WIDTH 15.8 % (11.5-14.5)
[2018-12-02 06:51] LABS: CK-MB 0.47 ng/ml (0.0-2.4); TROPONIN-I 0.018 ng/ml (0.000-0.120)
[2018-12-02 07:09] LABS: CK INDEX 1.6; CREATINE KINASE 30 IU/L (23-200)
[2018-12-02] MEDS: INSULIN ASPART [NOVOLOG] 3 ML PEN SC ×4 (07:38→21:08)
[2018-12-02 07:44] LABS: ANION GAP 10 (5-13); BLOOD UREA NITROGEN 28 mg/dl (7-20); CALCIUM 8.5 mg/dl (8.4-10.2); CARBON DIOXIDE 26 mmol/L (21-31); CHLORIDE 100 mmol/L (97-110); Estimated GFR 11 mL/min (>60); GLUCOSE 104 mg/dl (70-220); POTASSIUM 3.9 mmol/L (3.5-5.1); SODIUM 136 mmol/L (135-144)
[2018-12-02] MEDS: CALCIUM ACETATE 667 MG CAP PO ×3 (07:52→17:04)
[2018-12-02 07:56] LABS: CHOL/HDL RATIO 4.6 RATIO; HDL CHOLESTEROL 19 mg/dl (28-71); LDL CHOLESTEROL,CALCULATED 47 mg/dl; TRIGLYCERIDES 113 mg/dl (0-149)
[2018-12-02 07:56] LABS: CHOLESTEROL 89 mg/dl (100-200)
[2018-12-02] MEDS: APIXABAN 5 MG TABLET PO ×2 (08:14→20:37)
[2018-12-02] MEDS: L ACIDOPHIL/B LACTIS/B LONGUM CAPSULE PO ×2 (08:14→20:37)
[2018-12-02] MEDS: ASPIRIN 81 MG TAB PO (08:14)
[2018-12-02] MEDS: MULTIVIT/CA CARB/B CMPLX/FA TAB PO (08:14)
[2018-12-02] MEDS: ISOSORBIDE DINITRATE 20 MG TAB PO ×3 (08:18→20:37)
[2018-12-02] MEDS: METOPROLOL 50 MG TAB PO ×2 (08:18→20:37)
[2018-12-02] MEDS: NIFEdipine (XL) 90 MG TAB PO (08:18)
[2018-12-02] MEDS: LIDOCAINE 1% (MDV) 20 ML INJ INJ (10:37)
[2018-12-02 12:35] LABS: CREATINE KINASE 26 IU/L (23-200)
[2018-12-02 12:46] LABS: CK INDEX 2.4; CK-MB 0.63 ng/ml (0.0-2.4); TROPONIN-I < 0.012 ng/ml (0.000-0.120)
[2018-12-02] MEDS: HYDROCODONE/APAP (5/325) TAB PO ×2 (14:13→22:00)
[2018-12-02] MEDS: ATORVASTATIN 80 MG TAB PO (20:37)
[2018-12-02] MEDS: INSULIN GLARGINE [LANTus] (100 UNITS/ML) SYG SC (21:08)
[2018-12-03] MEDS: HYDROmorphONE 2 MG/ML SYG IV ×6 (00:34→21:00)
[2018-12-03] MEDS: PIPER-TAZO 2.25 GM (PMX) 50 ML IVPB ×3 (02:34→17:30)
[2018-12-03] MEDS: ACCU-CHEK XX (02:45)
[2018-12-03 05:26] LABS: ADD MAN DIFF? NO
[2018-12-03 05:34] LABS: BASOPHILS % 0.3 % (0.0-2.0); EOSINOPHILS # 0.3 10^3/ul (0.0-0.5); EOSINOPHILS % 2.5 % (0.0-7.0); HEMATOCRIT 29.3 % (42.0-52.0); LYMPHOCYTES # 0.9 10^3/ul (0.8-2.9); LYMPHOCYTES % 8.3 % (15.0-51.0); MEAN CORPUSCULAR HEMOGLOBIN 29.7 pg (29.0-33.0); MEAN CORPUSCULAR HGB CONC 30.7 g/dl (32.0-37.0); MEAN CORPUSCULAR VOLUME 96.7 fl (82.0-101.0); MEAN PLATELET VOLUME 10.6 fl (7.4-10.4); MONOCYTE # 0.6 10^3/ul (0.3-0.9); MONOCYTES % 5.3 % (0.0-11.0); NEUTROPHIL # 8.7 10^3/ul (1.6-7.5); NEUTROPHILS % 82.8 % (39.0-77.0); PLATELET COUNT 250 10^3/UL (140-415); RED BLOOD COUNT 3.03 10^6/ul (4.70-6.10); RED CELL DISTRIBUTION WIDTH 15.7 % (11.5-14.5)
[2018-12-03 05:34] LABS: WHITE BLOOD COUNT 10.5 10^3/ul (4.8-10.8)
[2018-12-03 06:01] LABS: ANION GAP 7 (5-13); BLOOD UREA NITROGEN 22 mg/dl (7-20); CALCIUM 8.2 mg/dl (8.4-10.2); CARBON DIOXIDE 30 mmol/L (21-31); CHLORIDE 98 mmol/L (97-110); CREATININE 4.59 mg/dl (0.61-1.24); Estimated GFR 13 mL/min (>60); GLUCOSE 168 mg/dl (70-220); MAGNESIUM 1.9 mg/dl (1.7-2.5); PHOSPHORUS 3.4 mg/dl (2.5-4.9); POTASSIUM 3.9 mmol/L (3.5-5.1); SODIUM 135 mmol/L (135-144)
[2018-12-03 06:55] LABS: ERYTHROCYTE SEDIMENTATION RATE 105 mm/Hr (0-20)
[2018-12-03] MEDS: INSULIN ASPART [NOVOLOG] 3 ML PEN SC ×4 (07:45→20:27)
[2018-12-03] MEDS: CALCIUM ACETATE 667 MG CAP PO ×3 (08:16→17:30)
[2018-12-03] MEDS: APIXABAN 5 MG TABLET PO ×2 (08:16→20:17)
[2018-12-03] MEDS: L ACIDOPHIL/B LACTIS/B LONGUM CAPSULE PO ×2 (08:16→20:17)
[2018-12-03] MEDS: ASPIRIN 81 MG TAB PO (08:16)
[2018-12-03] MEDS: MULTIVIT/CA CARB/B CMPLX/FA TAB PO (08:17)
[2018-12-03] MEDS: METOPROLOL 50 MG TAB PO ×2 (08:17→20:12)
[2018-12-03] MEDS: ISOSORBIDE DINITRATE 20 MG TAB PO ×3 (08:17→20:17)
[2018-12-03] MEDS: NIFEdipine (XL) 90 MG TAB PO (08:17)
[2018-12-03 10:07] LABS: PROCALCITONIN 0.29 ng/mL (0.00-0.10)
[2018-12-03] MEDS: HYDROCODONE/APAP (5/325) TAB PO (10:29)
[2018-12-03] MEDS: LORAZEPAM 1 MG TAB PO ×2 (12:19→22:15)
[2018-12-03 17:37] LABS: AADO2 Arterial 193.5 mmHg (7.0-24.0); Allen Test ACCEPTAB; Arterial Base Excess 2.8 mmol/L (-3.0-3); Arterial Blood Gas Oxygen Sat 80.5 mmHG (95.0-98.0); Arterial COHb 0.7 % (0.0-3.0); Arterial Fraction of Oxyhgb 79.8 % (93.0-99.0); Arterial HCO3 27.4 mmol/L (22.0-26.0); Arterial MetHb 0.2 % (0.0-1.5); Arterial pCO2 42.3 mmhg (35-45); MODE HFNC; Site Right Radial
[2018-12-03] MEDS: ATORVASTATIN 80 MG TAB PO (20:17)
[2018-12-03] MEDS: INSULIN GLARGINE [LANTus] (100 UNITS/ML) SYG SC (20:27)
[2018-12-04] MEDS: HYDROmorphONE 2 MG/ML SYG IV ×5 (00:46→22:33)
[2018-12-04] MEDS: ACCU-CHEK XX (01:07)
[2018-12-04] MEDS: PIPER-TAZO 2.25 GM (PMX) 50 ML IVPB ×3 (01:08→17:53)
[2018-12-04 05:54] LABS: ADD MAN DIFF? NO
[2018-12-04 06:07] LABS: BASOPHIL # 0.1 10^3/ul (0.0-0.1); BASOPHILS % 0.4 % (0.0-2.0); EOSINOPHILS # 0.2 10^3/ul (0.0-0.5); EOSINOPHILS % 1.7 % (0.0-7.0); HEMATOCRIT 28.3 % (42.0-52.0); HEMOGLOBIN 8.6 g/dl (14.0-18.0); LYMPHOCYTES % 8.2 % (15.0-51.0); MEAN CORPUSCULAR HGB CONC 30.4 g/dl (32.0-37.0); MEAN CORPUSCULAR VOLUME 95.3 fl (82.0-101.0); MEAN PLATELET VOLUME 10.6 fl (7.4-10.4); MONOCYTE # 0.6 10^3/ul (0.3-0.9); NEUTROPHIL # 9.8 10^3/ul (1.6-7.5); NEUTROPHILS % 84.1 % (39.0-77.0); PLATELET COUNT 238 10^3/UL (140-415); RED BLOOD COUNT 2.97 10^6/ul (4.70-6.10); RED CELL DISTRIBUTION WIDTH 15.6 % (11.5-14.5)
[2018-12-04 06:07] LABS: WHITE BLOOD COUNT 11.7 10^3/ul (4.8-10.8)
[2018-12-04 06:21] LABS: ANION GAP 10 (5-13); BLOOD UREA NITROGEN 33 mg/dl (7-20); CALCIUM 8.5 mg/dl (8.4-10.2); CARBON DIOXIDE 27 mmol/L (21-31); CHLORIDE 96 mmol/L (97-110); CREATININE 5.81 mg/dl (0.61-1.24); Estimated GFR 10 mL/min (>60); GLUCOSE 138 mg/dl (70-220); MAGNESIUM 1.9 mg/dl (1.7-2.5); PHOSPHORUS 3.7 mg/dl (2.5-4.9); SODIUM 133 mmol/L (135-144)
[2018-12-04] MEDS: INSULIN ASPART [NOVOLOG] 3 ML PEN SC ×4 (08:00→20:52)
[2018-12-04] MEDS: CALCIUM ACETATE 667 MG CAP PO ×3 (09:04→18:55)
[2018-12-04] MEDS: HYDROCODONE/APAP (5/325) TAB PO ×3 (09:04→20:55)
[2018-12-04] MEDS: NIFEdipine (XL) 90 MG TAB PO (09:05)
[2018-12-04] MEDS: MULTIVIT/CA CARB/B CMPLX/FA TAB PO (09:06)
[2018-12-04] MEDS: METOPROLOL 50 MG TAB PO ×2 (09:06→20:29)
[2018-12-04] MEDS: ASPIRIN 81 MG TAB PO (09:06)
[2018-12-04] MEDS: APIXABAN 5 MG TABLET PO ×2 (09:07→20:30)
[2018-12-04] MEDS: ISOSORBIDE DINITRATE 20 MG TAB PO ×3 (09:07→20:29)
[2018-12-04] MEDS: L ACIDOPHIL/B LACTIS/B LONGUM CAPSULE PO ×2 (09:15→20:30)
[2018-12-04] MEDS: LORAZEPAM 1 MG TAB PO (13:00)
[2018-12-04] MEDS: LIDOCAINE 1% (MDV) 20 ML INJ INJ (14:03)
[2018-12-04] MEDS: EPOETIN ALFA-EPBX (ESRD) 10,000 UNIT/ML VIAL SC (18:57)
[2018-12-04] MEDS: ATORVASTATIN 80 MG TAB PO (20:30)
[2018-12-04] MEDS: INSULIN GLARGINE [LANTus] (100 UNITS/ML) SYG SC (20:52)
[2018-12-05] MEDS: ALBUTEROL/IPRATROPIUM (NEB) 3 ML AMP HHN (00:11)
[2018-12-05] MEDS: LORAZEPAM 1 MG TAB PO (00:25)
[2018-12-05] MEDS: PIPER-TAZO 2.25 GM (PMX) 50 ML IVPB ×3 (02:29→18:42)
[2018-12-05] MEDS: ACCU-CHEK XX (02:30)
[2018-12-05] MEDS: HYDROmorphONE 2 MG/ML SYG IV ×6 (02:31→22:42)
[2018-12-05 05:52] LABS: ADD MAN DIFF? NO
[2018-12-05 05:58] LABS: WHITE BLOOD COUNT 8.9 10^3/ul (4.8-10.8)
[2018-12-05 05:59] LABS: BASOPHILS % 0.3 % (0.0-2.0); EOSINOPHILS # 0.2 10^3/ul (0.0-0.5); HEMATOCRIT 26.8 % (42.0-52.0); HEMOGLOBIN 8.3 g/dl (14.0-18.0); LYMPHOCYTES # 1.1 10^3/ul (0.8-2.9); MEAN CORPUSCULAR HEMOGLOBIN 29.4 pg (29.0-33.0); MEAN PLATELET VOLUME 10.6 fl (7.4-10.4); MONOCYTE # 0.6 10^3/ul (0.3-0.9); MONOCYTES % 7.1 % (0.0-11.0); NEUTROPHIL # 6.9 10^3/ul (1.6-7.5); NEUTROPHILS % 77.9 % (39.0-77.0); PLATELET COUNT 239 10^3/UL (140-415); RED BLOOD COUNT 2.82 10^6/ul (4.70-6.10); RED CELL DISTRIBUTION WIDTH 15.7 % (11.5-14.5)
[2018-12-05 06:36] LABS: ALBUMIN 3.5 g/dl (3.3-4.9); ANION GAP 7 (5-13); BLOOD UREA NITROGEN 24 mg/dl (7-20); CALCIUM 8.2 mg/dl (8.4-10.2); CARBON DIOXIDE 30 mmol/L (21-31); CHLORIDE 97 mmol/L (97-110); CREATININE 4.59 mg/dl (0.61-1.24); GLUCOSE 163 mg/dl (70-220); MAGNESIUM 1.9 mg/dl (1.7-2.5); PHOSPHORUS 2.9 mg/dl (2.5-4.9); POTASSIUM 3.9 mmol/L (3.5-5.1); SODIUM 134 mmol/L (135-144)
[2018-12-05] MEDS: INSULIN ASPART [NOVOLOG] 3 ML PEN SC ×4 (07:41→20:40)
[2018-12-05] MEDS: CALCIUM ACETATE 667 MG CAP PO ×3 (09:00→17:25)
[2018-12-05] MEDS: APIXABAN 5 MG TABLET PO ×2 (09:00→20:40)
[2018-12-05] MEDS: L ACIDOPHIL/B LACTIS/B LONGUM CAPSULE PO ×2 (09:00→20:40)
[2018-12-05] MEDS: ISOSORBIDE DINITRATE 20 MG TAB PO ×2 (09:01→11:47)
[2018-12-05] MEDS: MULTIVIT/CA CARB/B CMPLX/FA TAB PO (09:01)
[2018-12-05] MEDS: ASPIRIN 81 MG TAB PO (09:01)
[2018-12-05] MEDS: METOPROLOL 50 MG TAB PO (09:02)
[2018-12-05] MEDS: NIFEdipine (XL) 90 MG TAB PO (09:03)
[2018-12-05] MEDS ORDERED: ALBUMIN HUMAN 25% 100 ML IV (09:30)
[2018-12-05] MEDS: HYDROCODONE/APAP (5/325) TAB PO (16:56)
[2018-12-05] MEDS: ATORVASTATIN 80 MG TAB PO (20:40)
[2018-12-05] MEDS: INSULIN GLARGINE [LANTus] (100 UNITS/ML) SYG SC (20:41)
[2018-12-05] MEDS: LIDOCAINE 1% (MDV) 20 ML INJ INJ (21:42)
[2018-12-06] MEDS: ISOSORBIDE DINITRATE 20 MG TAB PO ×4 (00:50→20:56)
[2018-12-06] MEDS: METOPROLOL 50 MG TAB PO ×3 (00:51→20:57)
[2018-12-06] MEDS: ACCU-CHEK XX (02:00)
[2018-12-06] MEDS: PIPER-TAZO 2.25 GM (PMX) 50 ML IVPB ×3 (02:27→17:33)
[2018-12-06] MEDS: HYDROmorphONE 2 MG/ML SYG IV ×2 (02:28→06:23)
[2018-12-06] MEDS: LORAZEPAM 1 MG TAB PO ×2 (03:41→21:04)
[2018-12-06 05:31] LABS: ADD MAN DIFF? NO
[2018-12-06 05:33] LABS: BASOPHILS % 0.4 % (0.0-2.0); EOSINOPHILS # 0.2 10^3/ul (0.0-0.5); EOSINOPHILS % 2.2 % (0.0-7.0); HEMOGLOBIN 8.6 g/dl (14.0-18.0); LYMPHOCYTES % 9.5 % (15.0-51.0); MEAN CORPUSCULAR HEMOGLOBIN 29.2 pg (29.0-33.0); MEAN CORPUSCULAR HGB CONC 30.7 g/dl (32.0-37.0); MEAN CORPUSCULAR VOLUME 94.9 fl (82.0-101.0); MEAN PLATELET VOLUME 10.7 fl (7.4-10.4); MONOCYTE # 0.6 10^3/ul (0.3-0.9); NEUTROPHIL # 8.6 10^3/ul (1.6-7.5); NEUTROPHILS % 81.3 % (39.0-77.0); PLATELET COUNT 258 10^3/UL (140-415); RED BLOOD COUNT 2.95 10^6/ul (4.70-6.10); RED CELL DISTRIBUTION WIDTH 15.7 % (11.5-14.5)
[2018-12-06 05:33] LABS: WHITE BLOOD COUNT 10.6 10^3/ul (4.8-10.8)
[2018-12-06 06:18] LABS: ALBUMIN 3.3 g/dl (3.3-4.9); ANION GAP 8 (5-13); BLOOD UREA NITROGEN 30 mg/dl (7-20); CALCIUM 8.2 mg/dl (8.4-10.2); CARBON DIOXIDE 27 mmol/L (21-31); CHLORIDE 98 mmol/L (97-110); GLUCOSE 128 mg/dl (70-220); MAGNESIUM 1.9 mg/dl (1.7-2.5); PHOSPHORUS 3.4 mg/dl (2.5-4.9); POTASSIUM 4.1 mmol/L (3.5-5.1); SODIUM 133 mmol/L (135-144)
[2018-12-06] MEDS: INSULIN ASPART [NOVOLOG] 3 ML PEN SC ×4 (08:00→20:55)
[2018-12-06] MEDS: ASPIRIN 81 MG TAB PO (08:06)
[2018-12-06] MEDS: CALCIUM ACETATE 667 MG CAP PO ×3 (08:06→17:33)
[2018-12-06] MEDS: APIXABAN 5 MG TABLET PO ×2 (08:07→20:56)
[2018-12-06] MEDS: L ACIDOPHIL/B LACTIS/B LONGUM CAPSULE PO ×2 (08:07→20:55)
[2018-12-06] MEDS: MULTIVIT/CA CARB/B CMPLX/FA TAB PO (08:07)
[2018-12-06] MEDS: NIFEdipine (XL) 90 MG TAB PO (08:08)
[2018-12-06] MEDS: NIFEdipine (XL) 60 MG TAB PO (09:00)
[2018-12-06] MEDS: HYDROmorphONE 1 MG/ML SYG IV ×4 (10:25→22:39)
[2018-12-06] MEDS: HYDROCODONE/APAP (5/325) TAB PO (12:53)
[2018-12-06] MEDS: EPOETIN ALFA-EPBX (ESRD) 10,000 UNIT/ML VIAL SC (17:33)
[2018-12-06] MEDS: INSULIN GLARGINE [LANTus] (100 UNITS/ML) SYG SC (20:55)
[2018-12-06] MEDS: ATORVASTATIN 80 MG TAB PO (20:56)
[2018-12-07] MEDS: PIPER-TAZO 2.25 GM (PMX) 50 ML IVPB ×3 (01:50→18:18)
[2018-12-07] MEDS: ACCU-CHEK XX (02:02)
[2018-12-07] MEDS: HYDROmorphONE 1 MG/ML SYG IV ×2 (02:29→06:29)
[2018-12-07] MEDS: ONDANSETRON 4 MG INJ IV ×2 (02:29→18:17)
[2018-12-07 05:54] LABS: ADD MAN DIFF? NO
[2018-12-07 05:55] LABS: WHITE BLOOD COUNT 11.4 10^3/ul (4.8-10.8)
[2018-12-07 05:55] LABS: BASOPHIL # 0.1 10^3/ul (0.0-0.1); BASOPHILS % 0.4 % (0.0-2.0); EOSINOPHILS # 0.2 10^3/ul (0.0-0.5); HEMATOCRIT 26.4 % (42.0-52.0); HEMOGLOBIN 8.2 g/dl (14.0-18.0); LYMPHOCYTES # 0.9 10^3/ul (0.8-2.9); LYMPHOCYTES % 7.7 % (15.0-51.0); MEAN CORPUSCULAR HEMOGLOBIN 29.3 pg (29.0-33.0); MEAN CORPUSCULAR HGB CONC 31.1 g/dl (32.0-37.0); MEAN CORPUSCULAR VOLUME 94.3 fl (82.0-101.0); MEAN PLATELET VOLUME 10.9 fl (7.4-10.4); MONOCYTE # 0.7 10^3/ul (0.3-0.9); MONOCYTES % 5.9 % (0.0-11.0); NEUTROPHIL # 9.5 10^3/ul (1.6-7.5); NEUTROPHILS % 83.5 % (39.0-77.0); PLATELET COUNT 240 10^3/UL (140-415); RED CELL DISTRIBUTION WIDTH 15.5 % (11.5-14.5)
[2018-12-07 06:51] LABS: ALBUMIN 3.3 g/dl (3.3-4.9); ANION GAP 9 (5-13); BLOOD UREA NITROGEN 39 mg/dl (7-20); CALCIUM 8.4 mg/dl (8.4-10.2); CARBON DIOXIDE 26 mmol/L (21-31); CHLORIDE 98 mmol/L (97-110); CREATININE 6.39 mg/dl (0.61-1.24); GLUCOSE 121 mg/dl (70-220); MAGNESIUM 1.9 mg/dl (1.7-2.5); PHOSPHORUS 3.3 mg/dl (2.5-4.9); POTASSIUM 4.4 mmol/L (3.5-5.1); SODIUM 133 mmol/L (135-144)
[2018-12-07] MEDS: INSULIN ASPART [NOVOLOG] 3 ML PEN SC ×4 (08:00→22:15)
[2018-12-07] MEDS: CALCIUM ACETATE 667 MG CAP PO ×3 (08:37→18:18)
[2018-12-07] MEDS: METOPROLOL 50 MG TAB PO ×2 (09:00→20:35)
[2018-12-07] MEDS: ISOSORBIDE DINITRATE 20 MG TAB PO ×3 (09:00→20:34)
[2018-12-07] MEDS: NIFEdipine (XL) 60 MG TAB PO (09:00)
[2018-12-07] MEDS: MULTIVIT/CA CARB/B CMPLX/FA TAB PO (09:33)
[2018-12-07] MEDS: CALCITRIOL 0.25 MCG CAP PO (09:33)
[2018-12-07] MEDS: ASPIRIN 81 MG TAB PO (09:33)
[2018-12-07] MEDS: L ACIDOPHIL/B LACTIS/B LONGUM CAPSULE PO ×2 (09:33→20:32)
[2018-12-07] MEDS: APIXABAN 5 MG TABLET PO ×2 (09:34→20:32)
[2018-12-07] MEDS: HYDROmorphONE 0.5 MG/0.5 ML SYG IV ×4 (10:40→22:41)
[2018-12-07] MEDS: LIDOCAINE 1% (MDV) 20 ML INJ INJ (15:04)
[2018-12-07] MEDS: HYDROCODONE/APAP (5/325) TAB PO (20:32)
[2018-12-07] MEDS: ATORVASTATIN 80 MG TAB PO (20:33)
[2018-12-07] MEDS: INSULIN GLARGINE [LANTus] (100 UNITS/ML) SYG SC (22:14)
[2018-12-07] MEDS: LORAZEPAM 1 MG TAB PO (23:26)
[2018-12-08] MEDS: HYDROmorphONE 0.5 MG/0.5 ML SYG IV ×2 (02:49→07:28)
[2018-12-08] MEDS: PIPER-TAZO 2.25 GM (PMX) 50 ML IVPB ×3 (02:57→17:36)
[2018-12-08] MEDS: ACCU-CHEK XX (02:59)
[2018-12-08 05:52] LABS: ADD MAN DIFF? NO
[2018-12-08 05:55] LABS: WHITE BLOOD COUNT 13.6 10^3/ul (4.8-10.8)
[2018-12-08 05:56] LABS: BASOPHIL # 0.1 10^3/ul (0.0-0.1); BASOPHILS % 0.4 % (0.0-2.0); EOSINOPHILS # 0.2 10^3/ul (0.0-0.5); EOSINOPHILS % 1.6 % (0.0-7.0); HEMATOCRIT 25.8 % (42.0-52.0); LYMPHOCYTES # 0.8 10^3/ul (0.8-2.9); LYMPHOCYTES % 5.9 % (15.0-51.0); MEAN CORPUSCULAR HEMOGLOBIN 29.3 pg (29.0-33.0); MEAN CORPUSCULAR VOLUME 94.5 fl (82.0-101.0); MEAN PLATELET VOLUME 11.2 fl (7.4-10.4); MONOCYTE # 0.9 10^3/ul (0.3-0.9); MONOCYTES % 6.8 % (0.0-11.0); NEUTROPHIL # 11.6 10^3/ul (1.6-7.5); NEUTROPHILS % 84.9 % (39.0-77.0); PLATELET COUNT 243 10^3/UL (140-415); RED BLOOD COUNT 2.73 10^6/ul (4.70-6.10); RED CELL DISTRIBUTION WIDTH 15.6 % (11.5-14.5)
[2018-12-08 06:14] LABS: ALBUMIN 3.6 g/dl (3.3-4.9); ANION GAP 8 (5-13); BLOOD UREA NITROGEN 27 mg/dl (7-20); CALCIUM 8.4 mg/dl (8.4-10.2); CARBON DIOXIDE 29 mmol/L (21-31); CHLORIDE 98 mmol/L (97-110); GLUCOSE 123 mg/dl (70-220); PHOSPHORUS 2.6 mg/dl (2.5-4.9); SODIUM 135 mmol/L (135-144)
[2018-12-08] MEDS: CALCIUM ACETATE 667 MG CAP PO ×3 (07:28→17:37)
[2018-12-08] MEDS: INSULIN ASPART [NOVOLOG] 3 ML PEN SC ×3 (07:33→17:50)
[2018-12-08 08:27] LABS: PROCALCITONIN 0.34 ng/mL (0.00-0.10)
[2018-12-08] MEDS: ALBUTEROL/IPRATROPIUM (NEB) 3 ML AMP HHN (08:58)
[2018-12-08] MEDS: CALCITRIOL 0.25 MCG CAP PO (09:06)
[2018-12-08] MEDS: MULTIVIT/CA CARB/B CMPLX/FA TAB PO (09:06)
[2018-12-08] MEDS: ASPIRIN 81 MG TAB PO (09:06)
[2018-12-08] MEDS: APIXABAN 5 MG TABLET PO (09:06)
[2018-12-08] MEDS: L ACIDOPHIL/B LACTIS/B LONGUM CAPSULE PO (09:06)
[2018-12-08] MEDS: ISOSORBIDE DINITRATE 20 MG TAB PO ×2 (09:07→13:20)
[2018-12-08] MEDS: METOPROLOL 50 MG TAB PO (09:08)
[2018-12-08] MEDS: NIFEdipine (XL) 60 MG TAB PO (09:09)
[2018-12-08] MEDS: HYDROCODONE/APAP (5/325) TAB PO ×2 (11:06→18:53)
[2018-12-08] MEDS: traMADol 50 MG TAB PO (13:21)
[2018-12-08] MEDS: LIDOCAINE 1% (MDV) 20 ML INJ INJ (14:28)
[2018-12-08] MEDS: EPOETIN ALFA-EPBX (ESRD) 10,000 UNIT/ML VIAL SC (17:36)
== END 2018-12-08 19:46 | DRG 264 ==
LOC: E/R 16:06 → 2NE 12-01 19:56 → 6WM 12-01 21:47
PROC: 0JBR0ZZ Excision of Left Foot Subcutaneous Tissue and Fascia, Open Approach (ICD-10-PCS; principal; 2018-11-29 12:05)
PROC: 0HRNXK3 Replacement of Left Foot Skin with Nonautologous Tissue Substitute, Full Thickness, External Approach (ICD-10-PCS; 2018-11-29 12:05)
PROC: 5A1D70Z Performance of Urinary Filtration, Intermittent, Less than 6 Hours Per Day (ICD-10-PCS; 2018-11-29 12:05)
PROC: 02HV33Z Insertion of Infusion Device into Superior Vena Cava, Percutaneous Approach (ICD-10-PCS; 2018-11-29 12:05)
DX: E11.52 Type 2 diabetes mellitus with diabetic peripheral angiopathy with gangrene (principal); N18.6 End stage renal disease; M86.9 Osteomyelitis, unspecified; I96 Gangrene, not elsewhere classified; I12.0 Hypertensive chronic kidney disease with stage 5 chronic kidney disease or end stage renal disease; E11.621 Type 2 diabetes mellitus with foot ulcer; E11.22 Type 2 diabetes mellitus with diabetic chronic kidney disease; Z99.2 Dependence on renal dialysis; E11.319 Type 2 diabetes mellitus with unspecified diabetic retinopathy without macular edema; F17.210 Nicotine dependence, cigarettes, uncomplicated; D64.9 Anemia, unspecified; E11.42 Type 2 diabetes mellitus with diabetic polyneuropathy; L97.529 Non-pressure chronic ulcer of other part of left foot with unspecified severity; F41.9 Anxiety disorder, unspecified
CPT/HCPCS: 36573; 36600; 71045; 73630-LT; 73718; 80048; 80053; 80061; 80069; 80202; 82550; 82553; 82728; 82803; 82962; 83036; 83540; 83605; 83735; 83880; 83970; 84100; 84145; 84443; 84484; 85025; 85610; 85651; 85730; 86140; 87040-91; 87070; 87075; 87081; 87102; 87340; 90935; 93005; 93306; 93971; 94640; 94664; 97116; 97162; 97166; 97530; 97535; 99285-25

== ENCOUNTER 2018-12-14 16:17 | Day surgery (SDC) | payer OTHER, MEDICAID, MEDICARE ==
[2018-12-14] MEDS ORDERED: PROPOFOL 60 ML (18:35)
[2018-12-14] MEDS ORDERED: LIDOCAINE 2% (SDV) 5 ML INJ (18:35)
== END 2018-12-14 20:26 ==
LOC: GIL 16:17
DX: D12.3 Benign neoplasm of transverse colon (principal); I10 Essential (primary) hypertension; I25.10 Atherosclerotic heart disease of native coronary artery without angina pectoris; E11.9 Type 2 diabetes mellitus without complications; J44.9 Chronic obstructive pulmonary disease, unspecified; E78.5 Hyperlipidemia, unspecified; Z79.82 Long term (current) use of aspirin; Z79.4 Long term (current) use of insulin
CPT/HCPCS: 45380; 87075; 88305